=== PATIENT | female | born 1975 | race Caucasian/White ===

== ENCOUNTER → 2017-07-06 09:03 | Outpatient (CLI) | payer OTHER, SELFPAY ==
--- NOTE | 2017-07-06 09:00 | ECHOD_ITS ---
Reason For Study: SOB Procedure This was a 2D Doppler, Color Flow transthoracic echocardiogram. Exam performed in department. Left Ventricle Normal LV size. Left ventricular systolic function is normal. The estimated ejection fraction is 60 %. No evidence for diastolic dysfunction. No regional wall motion abnormalities noted. Right Ventricle Normal RV size. Normal systolic function. Atria Normal left atrium. Normal right atrium. Mobile mass of the right atrium. Measuring 1 x1.4cm. Prominent eustachian valve. Mitral Valve Normal mitral valve. No mitral valve insufficiency. Tricuspid Valve Normal tricuspid valve. Trivial tricuspid valve insufficiency. Aortic Valve Normal aortic valve. Trisinus/trileaflet aortic valve. Pulmonic Valve Normal pulmonic valve. Great Vessels Normal aortic root. Pericardium/Pleural No pericardial effusion. MMode/2D Measurements & Calculations LVIDd: 4.0 cm IVSd: 0.88 cm Ao root diam: 3.4 cm LVIDs: 2.3 cm LVPWd: 0.81 cm LA dimension: 2.7 cm RVDd: 3.0 cm FS: 41.4 % LAV(MOD-bp): 38.1 ml LA A4 area: 14.4 cm2 RA A4 area: 15.0 cm2 LAV(MOD-bp) Indexed: 17.1 ml/m2 LAV(MOD-sp2): 41.6 ml LAV(MOD-sp4): 34.3 ml Doppler Measurements & Calculations MV E max wade: 98.5 cm/sec Lat Peak E' Wade: 13.0 cm/sec Med Peak E' Wade: 9.8 cm/sec MV A max wade: 55.0 cm/sec E/E' lat: 7.6 E/E' med: 10.0 MV E/A: 1.8 Ao V2 max: 130.7 cm/sec LV V1 max: 110.6 cm/sec PA V2 max: 96.6 cm/sec Ao max P.8 mmHg LV V1 max P.9 mmHg Interpretation Summary Normal LV size. Left ventricular systolic function is normal. The estimated ejection fraction is 60 %. No evidence for diastolic dysfunction. Mobile mass of the right atrium Measuring 1 x1.4 cm Recommend KELLY for further clarification Ordering Physician: Pa Polo Referring Physician: Pa Polo Performed By: Maira Henderson RDCS
--- NOTE | 2017-07-06 09:05 | EKG12_ITS ---
Test Reason : SOB Blood Pressure : / mmHG Vent. Rate : 068 BPM Atrial Rate : 068 BPM P-R Int : 138 ms QRS Dur : 116 ms QT Int : 444 ms P-R-T Axes : 035 -14 004 degrees QTc Int : 472 ms Normal sinus rhythm Left ventricular hypertrophy with QRS widening Abnormal ECG Confirmed by HÉCTOR JIN, MAURO ([id number]), editorial manager KIMBERLEE HILARIO ([id number] on 07/07/2017 4:15:02 PM Referred By: Pa Polo Confirmed By:MAURO ANAYA MD
== END ==
PROVIDERS: Family Provider Internal Medicine; PCP Internal Medicine; Visit Provider Internal Medicine
DX: R06.02 Shortness of breath (principal)
CPT/HCPCS: 93005; 93306

== ENCOUNTER → 2017-07-31 10:05 | Outpatient (CLI) | payer OTHER, SELFPAY ==
--- NOTE | 2017-07-31 10:07 | ECHOTEE_ITS ---
Reason For Study: SOB, abn echo finding Medication KELLY probe passed without difficulty. No complications were noted. Cetacaine Topical Brooks given X3 orally. Versed 1 mg given slow IVP. Fentanyl 50 mcg given slow IVP. Performed a rapid injection of agitated mix of 9 cc saline and 1cc air to assess for atrial septal defect. Left Ventricle Normal LV size. Left ventricular systolic function is normal. The estimated ejection fraction is 60 %. No regional wall motion abnormalities noted. Right Ventricle Normal RV size. Normal systolic function. The right ventricular wall motion is normal. Atria Bubble contrast study negative for right to left interatrial shunt. Normal left atrium. No thrombus is detected in the left atrial appendage. Normal right atrium. Prominent eustachian valve thickened and prominent trabeculae. Mitral Valve Normal mitral valve. Mild (1+) eccentric mitral valve insufficiency. Tricuspid Valve Normal tricuspid valve. Trivial tricuspid valve insufficiency. Aortic Valve Normal aortic valve. Trisinus/trileaflet aortic valve. Pulmonic Valve Normal pulmonic valve. Vessels Normal aortic root. The pulmonary artery is normal size. Pericardium No pericardial effusion. Interpretation Summary Prominent eustachian valve thickened and prominent trabeculae Left ventricular systolic function is normal. The estimated ejection fraction is 60 %. No regional wall motion abnormalities noted. Normal LV size. Ordering Physician: Pa Polo Referring Physician: Pa Polo Performed By: Vira Jacobsen RDCS
== END ==
PROVIDERS: Family Provider Internal Medicine; PCP Internal Medicine; Visit Provider Internal Medicine
DX: R06.02 Shortness of breath (principal); R93.1 Abnormal findings on diagnostic imaging of heart and coronary circulation
CPT/HCPCS: 93312; 93320; 93325; J7030; A4216

== ENCOUNTER → 2017-08-11 14:44 | Outpatient (CLI) | payer OTHER, SELFPAY ==
[2017-08-11 15:58] LABS: Absolute Lymphocyte Count 1.78 X10^3/ul (0.83-4.51); Absolute Neutrophil Count 5.5 X10^3/uL (2.0-7.7); Basophil# 0.02 X10^3/uL; Basophil% 0.3 % (0-1); Eosinophil# 0.07 X10^3/uL; Eosinophils% 0.9 % (0-5); Hematocrit 39.5 % (37-47); Lymphocyte # 1.78 X10^3/ul (4.0); Lymphocyte % 22.6 % (19-41); Mean Corp Hgb Conc 32.9 g/gl (32-36); Mean Corpuscular Hgb 29.7 pg (27.0-32.0); Mean Corpuscular Volume 90.2 fL (81-99); Monocyte# 0.52 X10^3/uL; Monocyte% 6.6 % (0-10); Neutrophil # 5.46 X10^3/uL (2.7-7.7); Neutrophil % 69.5 % (47-70); Platelet Count 248 K/mm3 (150-450); RBC Distribution Width CV 12.6 % (11.6-14.6); RBC Distribution Width SD 40.9 fl (35.1-43.9); Red Blood Count 4.38 M/mm3 (4.2-5.4); White Blood Count 7.9 K/mm3 (4.4-11.0)
[2017-08-11 16:08] LABS: POSITIVE COUNT NO; POSITIVE DIFFERENTIAL NO; POSITIVE MORPHOLOGY NO
[2017-08-11 16:34] LABS: Partial Thromboplast Time 26.7 Seconds (24.1-36.2); Prothrombin Time (Protime)PT. 13.4 SECONDS (11.7-14.9)
== END ==
PROVIDERS: Family Provider Internal Medicine; PCP Internal Medicine; Visit Provider Internal Medicine Critical Care Medicine
DX: J45.50 Severe persistent asthma, uncomplicated (principal); R05 Cough
CPT/HCPCS: 36415; 85025; 85610; 85730

== ENCOUNTER → 2017-08-12 18:56 | Outpatient (CLI) | payer OTHER, SELFPAY ==
[2017-08-17 15:13] LABS: HPV APTIMA, High Risk Negative (Negative)
== END ==
PROVIDERS: Family Provider Internal Medicine; PCP Internal Medicine; Visit Provider Nurse Practitioner Women's Health
DX: Z12.4 Encounter for screening for malignant neoplasm of cervix (principal)
CPT/HCPCS: 88175; G0145

== ENCOUNTER → 2017-08-13 06:52 | Outpatient (CLI) | payer OTHER, SELFPAY ==
--- NOTE | 2017-08-13 06:55 | CT_ITS ---
STUDY: CT CHEST WITHOUT CONTRAST REASON FOR EXAM: Female, 42 years old. Chronic productive cough. Shortness of breath. History of prior aspiration of solid food. RADIATION DOSAGE (If Supplied By Facility): CTDIvol = ( 20.05 ) mGy, DLP = ( 765.49 ) mGycm TECHNIQUE: Transaxial imaging was performed without the administration of intravenous contrast material. Multiplanar coronal and sagittal images were reformatted. Individualized dose optimization techniques were used for this CT. COMPARISON: Comparison is made with prior study dated February 21, 2016. FINDINGS: The lungs are normal. There is no demonstrated pleural abnormality. Normal heart and pericardium. There are multiple small lymph nodes within the mediastinum, which are normal in size and morphology most compatible with reactive lymph hyperplasia. Normal hilar regions. Normal unenhanced pulmonary arteries. Normal aorta arch and descending thoracic aorta. There are degenerative changes of the thoracic spine. There is no demonstrated abnormality of the visualized upper abdomen. CT/Chest without Contrast IMPRESSION: Unremarkable unenhanced CT Chest examination. Electronically Signed: Dg Ortiz MD at 9:21 EDT Tel [phone], Service support ,
== END ==
PROVIDERS: Family Provider Internal Medicine; PCP Internal Medicine; Visit Provider Internal Medicine Critical Care Medicine
DX: J45.50 Severe persistent asthma, uncomplicated (principal); R05 Cough
CPT/HCPCS: 71250

== ENCOUNTER 2017-08-14 11:29 | Day surgery (SDC) | payer OTHER, SELFPAY ==
[2017-08-14] VITALS (8 sets, daily range): BP systolic 99–125; BP diastolic 67–97; PULSE 66–81; RESP 16; TEMP 36.4–37.1; O2SAT 95–100; BMI 41.7
--- NOTE | 2017-08-14 | FLU_PTH ---
PATIENT: MCKENNA MORAN LOC: EN U#:[id number] AGE/SX: 42/F ROOM: RE08/14/[address]: Dr. Michael James MD : 1975 BED: DIS: 08/14/2017 SPEC #: [id number] RECD: 08/14/17 14:20 STATUS: HILARY RCAHAEL #: [id number] DONIS: 08/14/17 00:[address]: Michael James DEPT: CYTOLOGY RECD BY: Emory Ruiz ENTERED: 08/14/17 14:21 SP TYPE: Fluid OTHR DR: Dr. Pa Polo MD Tissues: Bronchus of right middle lobe Procedures: Pap Stain (control) Special Stain Group II Surgery Specimen Level IV Cell Block Cytospin Fluid HEADER OPERATION: Bronchoscopy with BAL, endobronchial biopsy PRE-OP DIAGNOSIS: Uncontrolled severe asthma TISSUE SUBMITTED: BAL RML fluid for cytology DIAGNOSIS CYTOLOGY Bronchioalveolar lavage, right middle lobe lung (cytospin and cell block): Negative for malignant cells. AM:abraham 08/17/17 COMMENT Please see corresponding surgical specimen ([id number]). CYTOLOGY STUDY Slides are reviewed. CYTOLOGY GROSS Received is 40 ml of pink cloudy fluid labeled with the patient's name and and designated per the requisition as BAL RML. Submitted for cytology preparation including cell block. / 08/14/17 TC:5 CPT: 67676, 78598
--- NOTE | 2017-08-14 | LUNG_PTH ---
PATIENT: MCKENNA MORAN LOC: EN U#:[id number] AGE/SX: 42/F ROOM: RE08/14/[address]: Dr. Michael James MD : 1975 BED: DIS: 08/14/2017 SPEC #: [id number] RECD: 08/14/17 14:21 STATUS: HILARY RACHAEL #: [id number] DONIS: 08/14/17 00:[address]: Michael James DEPT: SURGICAL PATHOLOGY RECD BY: Emory Ruiz ENTERED: 08/14/17 14:22 SP TYPE: LUNG BX OTHR DR: Dr. Pa Polo MD Tissues: Bronchus of right middle lobe Procedures: Surgery Specimen Level IV HEADER OPERATION: Bronchoscopy with BAL, endobronchial biopsy PRE-OP DIAGNOSIS: Uncontrolled severe asthma TISSUE SUBMITTED: Endobronchial biopsy right bronchus intermedius MICROSCOPIC DIAGNOSIS Right bronchus intermedius, endobronchial biopsy: Benign bronchial epithelium with metaplastic change. Sub-bronchial tissue with minimal chronic inflammation. No evidence of malignancy. AM:abraham 08/17/17 COMMENT Please see corresponding cytology ([id number]). MICROSCOPIC DESCRIPTION Slides are reviewed. GROSS DESCRIPTION Received in fixative is one container labeled with the patient's name and designated endobronchial biopsy right bronchus intermedius. The specimen consists of multiple irregular fragments of roth soft tissue that in aggregate measure 0.4 x 0.1 x <0.1 cm. The specimen is totally submitted in one cassette. / SJ:abraham 08/14/17 TC:3 CPT: 39242
[2017-08-14 13:30] LABS: Cytology, Body Fluid / CSF SEE PATHOLOGY REPORT
--- NOTE | 2017-08-14 13:32 | PCM.OP.BLANK ---
Problem List (1) Severe persistent asthma Status: Chronic Qualifiers: Asthma complication type: uncomplicated Qualified Code(s): J45.50 - Severe persistent asthma, uncomplicated Comment: Status post bronchial thermoplasty in the past (2) Asthma exacerbation, mild Status: Acute Operative Report Date of Procedure: 08/14/17 BRONCHOSCOPY PROCEDURE NOTE Consent: Patient Indication: Severe persistent asthma Brief HPI: Patient is a 42-year-old female, currently following with me in the outpatient office who presented with severe persistent asthma following bronchial thermoplasty. Patient has had multiple workups in the past and there is some concern for occult infection. This led to bronchoscopy. Patient did have a physical exam prior to the procedure and this was unchanged compared to office note. No changes were indicated. A CT scan of the chest was obtained prior to this bronchoscopy and showed no obvious infiltrates. Procedure: After confirmation of informed consent, the procedure was reviewed with the patient once again in detail. All questions were answered and the patient agreed to move forward with the study. Peripheral IV and aerosol therapy was given per protocol. Significant test was used to assess for nasal patency. Right nares was chosen. Attempted to use Q-tips with lidocaine jelly to lubricate the airway. A brief attempt at introducing the scope into the airway was unsuccessful. At that time it was decided to use of oral approach. An oral bite block was placed and patient was given Cetacaine spray in the posterior pharynx. The bronchoscope was easily introduced into the posterior pharynx and vocal cords were visualized. There was good movement with vocalization. No paradoxical movement was noted. Lidocaine was introduced into the airway with associated coughing. After coughing had resolved, the bronchoscope was introduced into the airway. Immediately following introduction, patient developed a stridor-like response with aggressive coughing. Attempted to give lidocaine topically throughout the bronchial tree with limited success in addressing coughing. The bronchoscope was then introduced into the left bronchial tree in all segments and subsegments were examined. Mucosa appeared normal. There was no extrinsic compression, fungating pathology or foreign bodies noted. The bronchoscope was then introduced into the right bronchial tree and inspected in all segments and subsegments. Once again, mucosa appeared normal without extrinsic compression, fungating pathology or foreign bodies noted. The bronchoscope was then introduced into the right middle lobe bronchus in preparation for BAL. 80 cc of saline were instilled and approximately 45 cc were returned. Surfactant response was noted. Random biopsies were then taken of the bronchus intermedius and sent for pathologic review. Bronchoscope was then slowly withdrawn showing no additional areas of scope trauma, but otherwise no new findings were noted. The patient tolerated the procedure well. Patient's mother was updated following the procedure and all questions were answered. Specimens: 45 cc of BAL and endobronchial biopsy Total sedation: Versed 5 mg, fentanyl 75 mcg Complications: None Code Visit 9xxxx: Other Procedure See Report - Bronchoscopy with endobronchial biopsy and BAL
[2017-08-14 14:08] LABS: Body Fluid Mononuclear WBC # 0.082 10^3/uL; Body Fluid Mononuclear WBC % 62.6 %; Body Fluid Polynuclear WBC # 0.049 10^3/uL; Body Fluid Polynuclear WBC % 37.4 %; Body Fluid Total Cells Counted 0.187 10^3/ul (0.000-0.000); White Blood Count/Body Fluid 0.131 10^3/uL
[2017-08-14 15:15] LABS: Lymphocytes 1 %; Macrophages 97 %; Neutrophil (Segs) 2 %
[2017-08-14 15:16] LABS: Appearance/Body Fluid SL CLDY; Body Fluid QC Type(s) BF1; Color/Body Fluid PINK; Source- Body Fluid BRONCHIAL LAVAGE
[2017-08-17 10:18] LABS: Pathologist Comment/Body Fluid Reviewed
== END 2017-08-14 14:50 | disposition home or self-care (01) ==
LOC: EN 11:31 → AC 11:32
PROVIDERS: Family Provider Internal Medicine; PCP Internal Medicine; Visit Provider Internal Medicine Critical Care Medicine
PROC: 0BJ08ZZ Inspection of Tracheobronchial Tree, Via Natural or Artificial Opening Endoscopic (ICD-10-PCS; CPT 31622; principal; 2017-08-14 12:15)
DX: J42 Unspecified chronic bronchitis (principal); J45.50 Severe persistent asthma, uncomplicated; K21.9 Gastro-esophageal reflux disease without esophagitis; Z79.51 Long term (current) use of inhaled steroids; Z87.891 Personal history of nicotine dependence
CPT/HCPCS: 31624; 31625; 87015; 87070; 87116; 87205; 87206; 87252; 87278; 88108; 88305; 88313; 89050; 99152; 99153; J7120

== ENCOUNTER → 2018-01-05 13:52 | Outpatient (CLI) | payer OTHER, SELFPAY | PROVIDERS: Family Provider Internal Medicine; PCP Internal Medicine; Visit Provider Nurse Practitioner Acute Care | DX: J20.9 Acute bronchitis, unspecified (principal) | CPT/HCPCS: 71046 ==

== ENCOUNTER → 2018-01-06 14:37 | Outpatient (CLI) | payer OTHER, SELFPAY | LOC: LAB 14:38 → LABSPEC 14:39 | PROVIDERS: Family Provider Internal Medicine; PCP Internal Medicine; Visit Provider Nurse Practitioner Acute Care | DX: R05 Cough (principal) | CPT/HCPCS: 87070; 87205 ==

== ENCOUNTER → 2019-01-31 | Outpatient (CLI) | payer OTHER, SELFPAY ==
[2019-01-31 13:38] VITALS: BMI 42.5
== END | disposition home or self-care (01) ==
LOC: LABSPEC 02-01 13:53
PROVIDERS: Family Provider Internal Medicine; PCP Internal Medicine; Referring Provider Physician Assistant Surgical; Visit Provider Physician Assistant Surgical
DX: J06.0 Acute laryngopharyngitis (principal)
CPT/HCPCS: 87070

== ENCOUNTER → 2020-02-21 | Outpatient (CLI) | payer OTHER, SELFPAY ==
[2020-02-21 11:05] VITALS: BMI 42.3
[2020-02-21 12:07] LABS: Absolute Lymphocyte Count 1.41 X10^3/uL (0.83-4.51); Basophil# 0.03 X10^3/uL; Basophil% 0.5 % (0-1); Eosinophil# 0.15 X10^3/uL; Eosinophils% 2.5 % (0-5); Hematocrit 43.3 % (37-47); Hemoglobin 13.3 g/dL (12.0-15.0); Lymphocyte # 1.41 X10^3/ul (4.0); Lymphocyte % 23.5 % (19-41); Mean Corp Hgb Conc 30.7 g/dL (32-36); Mean Corpuscular Hgb 28.7 pg (27.0-32.0); Mean Corpuscular Volume 93.3 fL (81-99); Mean Platelet Vol. 10.6 fl (6.2-12.0); Monocyte# 0.41 X10^3/uL; Monocyte% 6.8 % (0-10); NRBC Flagged by Analyzer 0 % (0-5); Neutrophil # 3.98 X10^3/uL (2.7-7.7); Neutrophil % 66.5 % (47-70); Platelet Count 249 K/mm3 (150-450); RBC Distribution Width CV 12.9 % (11.6-14.6); RBC Distribution Width SD 44.6 fl (35.1-43.9); Red Blood Count 4.64 M/mm3 (4.2-5.4)
[2020-02-24 03:06] LABS: Alternaria alternata <0.10 kU/L (Class 0); Aspergillus fumigatus <0.10 kU/L (Class 0); Bahia Grass 0.31 kU/L (Class 0/I); Bermuda Grass 0.11 kU/L (Class 0/I); Bluegrass, Kentucky 0.52 kU/L (Class I); Cat Hair/Dander, Standard 0.29 kU/L (Class 0/I); Cedar, Mountain <0.10 kU/L (Class 0); Cladosporium herbarum <0.10 kU/L (Class 0); Cockroach, American <0.10 kU/L (Class 0); D farinae Mite 1.65 kU/L (Class III); D pteronyssinus 0.65 kU/L (Class II); Dog Epithelia 6.06 kU/L (Class IV); Elm, American White <0.10 kU/L (Class 0); Hazelnut Tree <0.10 kU/L (Class 0); Hickory, White <0.10 kU/L (Class 0); Johnson Grass 0.23 kU/L (Class 0/I); Maple/Box Elder <0.10 kU/L (Class 0); Mucor racemosus <0.10 kU/L (Class 0); Mugwort <0.10 kU/L (Class 0); Mulberry, White <0.10 kU/L (Class 0); Oak, White <0.10 kU/L (Class 0); Penicillium chrysogen <0.10 kU/L (Class 0); Pigweed, Rough <0.10 kU/L (Class 0); Plantain, English <0.10 kU/L (Class 0); Ragweed, Short/Common 0.28 kU/L (Class 0/I); Sheep Sorrel(Dock) <0.10 kU/L (Class 0); Stemphylium herbarum <0.10 kU/L (Class 0); Sweet Gum <0.10 kU/L (Class 0); Sycamore, American <0.10 kU/L (Class 0)
[2020-02-24 09:46] LABS: Nettle <0.10 kU/L (Class 0)
[2020-02-25 03:06] LABS: Aspirgillus flavus Negative (Neg:<1:1); Aspirgillus fumigatus Negative (Neg:<1:1); Aspirgillus niger Negative (Neg:<1:1)
[2020-02-27 10:00] LABS: Immunoglobulin E 40 IU/mL (6-495)
== END | disposition home or self-care (01) ==
LOC: PAVLAB 11:50
PROVIDERS: PCP Internal Medicine; Referring Provider Internal Medicine Critical Care Medicine; Visit Provider Internal Medicine Critical Care Medicine
DX: J45.50 Severe persistent asthma, uncomplicated (principal)
CPT/HCPCS: 36415; 82785; 85025; 86003; 86606

== ENCOUNTER → 2020-02-24 | Outpatient (CLI) | payer OTHER, SELFPAY ==
[2020-02-21 11:05] VITALS: BMI 42.3
== END | disposition home or self-care (01) ==
LOC: MTDU 17:16
PROVIDERS: PCP Internal Medicine; Referring Provider Internal Medicine Critical Care Medicine; Visit Provider Internal Medicine Critical Care Medicine
DX: Z20.828 Contact with and (suspected) exposure to other viral communicable diseases (principal); J98.4 Other disorders of lung
CPT/HCPCS: 87635; C9803; U0003

== ENCOUNTER 2020-04-21 09:46 | Emergency (ER) | payer OTHER, SELFPAY ==
[2020-04-18 09:02] VITALS: BMI 42.3
[2020-04-21 09:46] VITALS: BP 179/121; PULSE 83; RESP 16; TEMP 35.8; O2SAT 100; BMI 42.4
--- NOTE | 2020-04-21 09:57 | RAD_ITS ---
STUDY: X-RAY - PELVIS AND RIGHT HIP REASON FOR EXAM: Female, 45 years old. HIP PAIN POST FALL TECHNIQUE: 3 views of the pelvis and hip. COMPARISON: None. FINDINGS: There is a normal bowel gas pattern. There are Essure devices in the pelvis. Normal bilateral iliac wings, sacroiliac joints and visualized sacrum. Normal bilateral superior and inferior pubic rami. Normal pubic symphysis. Normal bilateral ischial tuberosities. Normal visualized femoral head. There is enthesopathic spurring of the greater trochanter. Normal acetabulum. Normal hip joint. There is no acute fracture. RAD/HIP, UNI W/ Pelvis 2-3 Views IMPRESSION: No acute fracture. Electronically Signed: Perry Peralta MD at 11:01 EST , Service support ,
--- NOTE | 2020-04-21 09:57 | RAD_ITS ---
STUDY: X-RAY - RIGHT KNEE REASON FOR EXAM: Female, 45 years old. KNEE PAIN POST FALL TECHNIQUE: 4 view(s) of the knee. COMPARISON: None. FINDINGS: There is Néstor-Stieda calcification of the medial femoral condyle. Normal visualized proximal tibia and fibula. Normal proximal tibiofibular articulation. There is no demonstrated fracture. There is mild degenerative arthrosis of the medial femorotibial compartment. Normal lateral femorotibial compartment. There is mild degenerative arthrosis of the patellofemoral articulation. There is anterior soft tissue swelling. RAD/Knee 4 or More Views IMPRESSION: No acute fracture. Arthritic and chronic posttraumatic change. Electronically Signed: Perry Peralta MD at 10:59 EST , Service support ,
--- NOTE | 2020-04-21 09:59 | ED.DCSUM_ITS ---
- ER Visit Summary Date of Service: 04/21/20 Chief Complaint: Fall History of Present Illness: The patient is a 45 F who presents after a fall yesterday. Patient states she slipped on ice. Patient states she has pain in her right thigh, right knee, and right hip. Patient states her pain is worse with standing. Patient describes her pain is sharp. Patient states her right leg feels weak due to the pain. Patient denies any head injury or loss of consciousness. Patient denies any paresthesias. Patient denies any other injuries. Physical Examination: Vital signs are stable. Patient is afebrile. Patient is in no acute distress. Musculoskeletal exam reveals tenderness over the right knee. There is no effusion. There is edema and ecchymosis noted over the right knee and right proximal tibia. There is also tenderness over the anterior aspect of the right thigh and lateral aspect of the right hip. There is no bony crepitance or step-off. Range of motion was limited in all motions of the right hip and knee secondary to pain. Sensation was intact to light touch in all digits. Strength is 5/5 bilaterally in the lower extremities. Test Results: X-rays of the right hip were obtained. There are 4 views. On my interpretation, there is no acute fracture. There is no soft tissue swelling. X-rays of the right knee were obtained. There are 4 views. On my interpretation, there is no acute fracture or dislocation. There is some mild degenerative spurring noted on the medial femoral condyle. There is a mild joint effusion. Radiologist also interpreted the x-rays and agrees. Emergency Department Course and Treatment: Patient was given a dose of Tylenol here. Patient was instructed to use ice to the area. Patient was instructed to take Tylenol or ibuprofen as needed for pain. Patient was instructed to follow- up with her primary care physician in 5 to 7 days. Patient understood and was agreeable with the plan. All questions were answered. Disposition: Discharge home Impression: 1. Right knee contusion 2. Right thigh muscle strain This note was generated with [employer] dictation software. It may contain incorrect words, spelling, and punctuation that were not noted in review of the chart prior to signing ED Disposition - Plan for ED Patient: Disposition: Home or Assisted Living Diagnosis: Contusion of right knee, initial encounter, Muscle strain of right thigh Instructions: ED Contusion, Lower Extremity Referrals: Pa Polo MD [Primary Care Provider] - 5-7 Days
[2020-04-21] MEDS: Acetaminophen 500 MG Tablet 1000 MG PO (10:13)
[2020-04-21 11:55] VITALS: BP 132/81; PULSE 71; RESP 18; O2SAT 99
--- NOTE | 2020-04-21 11:55 | ED.RN ---
THIS NURSE REVIEWED D/C INSTRUCTIONS WITH PT. PT VERBALIZED UNDERSTANDING OF INSTRUCTIONS. PT DENIES FURTHER NEEDS OR QUESTIONS AT THIS TIME
== END 2020-04-21 11:56 | disposition home or self-care (01) ==
PROVIDERS: Emergency Provider Emergency Medicine; PCP Internal Medicine
DX: S80.01XA Contusion of right knee, initial encounter (principal); S76.911A Strain of unspecified muscles, fascia and tendons at thigh level, right thigh, initial encounter; E66.9 Obesity, unspecified; J45.909 Unspecified asthma, uncomplicated; Z79.51 Long term (current) use of inhaled steroids; W00.0XXA Fall on same level due to ice and snow, initial encounter; Y93.01 Activity, walking, marching and hiking; Y92.89 Other specified places as the place of occurrence of the external cause; Y99.8 Other external cause status
CPT/HCPCS: 73502; 73564; 99283

== ENCOUNTER 2020-10-23 00:10 | Emergency (ER) | payer OTHER, SELFPAY ==
[2020-10-16 13:52] VITALS: BMI 42.3
[2020-10-23 00:11] VITALS: BP 163/119; PULSE 77; RESP 16; TEMP 36.1; O2SAT 98; BMI 46.1
--- NOTE | 2020-10-23 00:24 | EKG12_ITS ---
Test Reason : DYSRHYTHMIA Blood Pressure : / mmHG Vent. Rate : 071 BPM Atrial Rate : 071 BPM P-R Int : 154 ms QRS Dur : 136 ms QT Int : 422 ms P-R-T Axes : 035 -18 011 degrees QTc Int : 458 ms Normal sinus rhythm Left ventricular hypertrophy with QRS widening Abnormal ECG Confirmed by AILYN JIN, SANTIAGO ([id number]), senior technical editor CHASE ARRIOLA ([id number]) on 10/24/2020 9:31:30 AM Referred By: RONAL Confirmed By:SANTIAGO ROBERTSON MD
--- NOTE | 2020-10-23 00:27 | EDS_ITS ---
HPI History of Present Illness Chief Complaint: Asthma Informant: patient and friend Onset/Context/Timing Onset: Today Quality: Shortness of breath and chest pain Worsened by: Ambulation Relieved by: Rest Associated Symptoms Associated Symptoms: Cough and sputum, history of asthma Narrative Narrative: Patient has a history of asthma, cough variant. She reports shortness of breath and low oxygen, 77%. She does not use supplemental oxygen. She is using her inhalers with no relief. She is not currently on antibiotics or steroids. She does have some chest pain but no history of cardiac disease. She has a remote history of DVT secondary to surgery. She is not currently on blood thinners. No leg pain currently. Prior similar symptoms: Yes Recent Illness/Hospitalization: No [facility] [place] Medical History (Updated 10/23/20 @ 03:[address] Bird Phan MD) Asthma Back pain Enlarged adenoids Hay fever Knee pain Migraines Productive cough Shoulder pain SOB (shortness of breath) Home Medications montelukast 10 mg PO DAILY 05/30/14 [History Last Taken 08/13/17] cranberry extract 200 mg capsule 200 mg PO QDAY 04/30/17 [History Last Taken 08/13/17] epinephrine 0.3 mg/0.3 mL injection, auto-injector 0.3 mg SC ONCE PRN 04/30/17 [History Last Taken 08/13/17] dextromethorphan-guaifenesin 10 mg-200 mg capsule 1 tab-cap PO ONCE PRN 07/11/18 [History Last Taken Unknown] albuterol sulfate 90 mcg/actuation aerosol inhaler 2 puff INHALATION Q4H PRN PRN #18 g 01/17/20 [Rx Last Taken Unknown] mometasone-formoterol HFA 200 mcg-5 mcg/actuation aerosol inhaler 2 puff INHALATION BID #13 g 01/17/20 [Rx Last Taken Unknown] benralizumab 30 mg/mL subcutaneous syringe 30 mg SC Q8W #1 ml 07/02/20 [Rx Last Taken Unknown] ibuprofen [Advil] 400 mg PO DAILY 10/23/20 [History Last Taken Unknown] prednisone 40 mg PO DAILY 4 Days #16 tab 10/23/20 [Rx Last Taken Unknown] Allergy/AdvReac Type Severity Reaction Status Date / Time acetaminophen [From [place]] Allergy hallucinati Verified 10/23/20 00:16 ons hydrocodone [From [place]] Allergy hallucinati Verified 10/23/20 00:16 ons iodine Allergy Anaphylaxis Verified 10/23/20 00:16 shellfish derived Allergy Unknown Verified 10/23/20 00:16 seasonal Allergy / Uncoded 10/23/20 00:16 Family History Mother Hypertension Diabetes Father Hypertension Diabetes Cancer Surgical History bronchial thermoplasty essure H/O foot surgery History of cholecystectomy History of tonsillectomy Hx of LASIK uterine ablation Social History Smoking Status: Never smoker how long ago did patient quit smokin second hand exposure: Yes alcohol intake: never substance use type: does not use caffeine: Yes what type of physical activity do you participate in: none seatbelt use: always do you feel safe at home: Yes additional social history: [employer] Patient works from home ROS ROS ED Constitutional Constitutional ED: Denies chills or fever(s) Eyes Eyes: Denies change in vision ENT ENT ED: Denies ear pain Cardiovascular Cardiovascular: Reports chest pain; Denies palpitations Respiratory/Chest Respiratory/Chest: Reports cough, dyspnea and sputum Gastrointestinal Gastrointestinal: Denies abdominal pain, nausea or vomiting Genitourinary Genitourinary ED: Denies dysuria Musculoskeletal Musculoskeletal: Denies arthralgias or myalgias Integumentary Denies abscess or rash Neurologic Neurologic: Denies headache(s) Psychiatric Psychiatric: Denies depression Endocrine Endocrinology: Denies polyuria Allergic/Immunologic Allergic/Immunologic ED: Denies urticaria EXAM Physical Exam Const Vital Signs: 10/23/20 00:11 10/23/20 00:43 Temperature 96.9 F L Temperature Source Temporal Pulse Rate 77 85 Respiratory Rate 16 16 Respiratory Pattern Normal Blood Pressure 163/119 H Blood Pressure Mean 133 Pulse Ox 98 Oxygen Delivery Method Room Air Positive well nourished and well developed General Appearance ED: well developed HEENT Negative for trauma or tenderness Eyes EOMs intact bilaterally Resp normal respiratory effort and clear to auscultation bilaterally Cardio regular rate and regular rhythm GI normal to inspection, nondistended, normoactive bowel sounds Extremity normal to inspection General Extremety ED: Negative for edema or tenderness General Extremity: Negative for edema Neuro Sensorium / Orientation: alert Psych mental status grossly normal Skin no rashes or lesions noted MDM MDM MDM Narrative Medical decision making narrative: Patient has shortness of breath, coughing, history of asthma and similar symptoms with asthma. She had a low pulse ox at home. EKG was unremarkable. She was placed on the monitor. Laboratory studies and x-ray were unremarkable. She was treated with steroids and DuoNeb. On reevaluation, she was feeling better. She ambulated and was 97% on room air. Patient be discharged on a course of prednisone. Continue inhalers. Follow-up with primary care. Lab Data Attestation: I reviewed the patient's lab results. Labs: Laboratory Results - last 24 hr 10/23/20 10/23/20 00:40 00:40 WBC 6.7 RBC 4.38 Hgb 12.6 Hct 39.2 MCV 89.5 MCH 28.8 MCHC 32.1 RDW Std Deviation 41.5 RDW Coeff of [place] 12.5 Plt Count 231 MPV 10.3 Immature Gran % (Auto) 0.100 Neut % (Auto) 61.3 Lymph % (Auto) 30.1 [place] % (Auto) 8.4 Eos % (Auto) 0.0 Baso % (Auto) 0.1 Absolute Neuts (auto) 4.1 Absolute Lymphs (auto) 2.01 Nucleated RBC % 0 Sodium 142 Potassium 3.5 Chloride 109 H Carbon Dioxide 25.0 Anion Gap 8 BUN 17 Creatinine 0.80 Estim Creat Clear Calc 90.53 Est GFR (MDRD) Af Amer 100 Est GFR (MDRD) Non-Af 83 BUN/Creatinine Ratio 21.4 H Glucose 133 H Calcium 9.0 Troponin I < 0.015 Radiography Chest X-Ray - ED: 1 View, Read by ED Physician and No Acute Disease Diagnostic Testing: Radiology Impression Chest X-Ray 10/23/20 00:46 IMPRESSION: Normal x-ray examination of the chest. Electronically Signed: Emory Garcia MD at 2:44 EDT Tel , Service support , EKG Initial EKG: Attestation: I personally reviewed and interpreted this EKG as follows: (Sinus rhythm at a rate of 71. No sign of acute ischemia or infarction pattern.) Discharge Plan Triage Chief Complaint: Asthma ED Provider: Bird Phan Dx/Rx/DC Orders Clinical Impression: Asthma exacerbation, mild Instructions: ED Asthma, Acute (Adult) Prescriptions: New prednisone 10 mg tablet 40 mg PO DAILY 4 Days Qty: 16 RF: 0 No Action cranberry extract 200 mg capsule 200 mg PO QDAY RF: 0 epinephrine 0.3 mg/0.3 mL auto-injector 0.3 mg SC ONCE PRN (Reason: anaphylaxis) RF: 0 Coricidin HBP Chest Eric-Cough 10-200 mg capsule 1 tab-cap PO ONCE PRN (Reason: Cough) RF: 0 Dulera 200-5 mcg/actuation HFA aerosol inhaler 2 puff INHALATION BID Qty: 13 RF: 6 albuterol sulfate 90 mcg/actuation HFA aerosol inhaler 2 puff INHALATION Q4H PRN PRN (Reason: Bronchospasm) Qty: 18 RF: 3 montelukast 10 MG tablet 10 mg PO DAILY RF: 0 ibuprofen [Advil] 200 mg Tablet 400 mg PO DAILY RF: 0 Fasenra 30 mg/mL syringe 30 mg SC Q8W Qty: 1 RF: 9 Primary Care Provider: Pa Polo Referrals: Pa Polo MD [Primary Care Provider] - Disposition Disposition: Home, self care
[2020-10-23 00:43] VITALS: PULSE 85; RESP 16
[2020-10-23] MEDS: Ipratropium/Albuterol Sulfate 3 ML AMPUL.NEB INHALATION (00:43)
[2020-10-23] MEDS: MethylPREDNISolone 125 MG/2 ML Vial IV (00:43)
--- NOTE | 2020-10-23 00:46 | RAD_ITS ---
STUDY: X-RAY CHEST REASON FOR EXAM: Female, 45 years old. Cough TECHNIQUE: Single AP portable view of the chest. COMPARISON: 01/05/2018 FINDINGS: The lungs are clear and expanded. There is no demonstrated pleural abnormality. Normal size heart. Normal mediastinum and keesha. Normal visualized pulmonary arteries. Normal visualized aortic arch and descending thoracic aorta. Normal visualized thoracic spine. Normal visualized ribs, clavicles, and shoulders. There is no demonstrated abnormality of the visualized soft tissue structures of the upper abdomen. RAD/Chest 1 View (Portable) IMPRESSION: Normal x-ray examination of the chest. Electronically Signed: Emory Garcia MD at 2:44 EDT Tel , Service support ,
[2020-10-23 00:51] LABS: Absolute Lymphocyte Count 2.01 X10^3/uL (0.83-4.51); Absolute Neutrophil Count 4.1 X10^3/uL (2.0-7.7); Basophil# 0.01 X10^3/uL; Basophil% 0.1 % (0-1); Hematocrit 39.2 % (37-47); Hemoglobin 12.6 g/dL (12.0-15.0); Lymphocyte # 2.01 X10^3/ul (0.83-4.51); Lymphocyte % 30.1 % (19-41); Mean Corp Hgb Conc 32.1 g/dL (32-36); Mean Corpuscular Hgb 28.8 pg (27.0-32.0); Mean Corpuscular Volume 89.5 fL (81-99); Mean Platelet Vol. 10.3 fl (6.2-12.0); Monocyte# 0.56 X10^3/uL; Monocyte% 8.4 % (0-10); NRBC Flagged by Analyzer 0 % (0-5); Neutrophil # 4.09 X10^3/uL (2.7-7.7); Neutrophil % 61.3 % (47-70); Platelet Count 231 K/mm3 (150-450); RBC Distribution Width CV 12.5 % (11.6-14.6); RBC Distribution Width SD 41.5 fl (35.1-43.9); Red Blood Count 4.38 M/mm3 (4.2-5.4); White Blood Count 6.7 K/mm3 (4.4-11.0)
[2020-10-23 01:09] LABS: Anion Gap 8 (5-15); BUN 17 mg/dL (7-18); BUN/Creat Ratio 21.4 RATIO (10-20); Chloride 109 mmol/L (98-107); EST Glomerular Filtration Rate 83 mL/min (>60); Est Glom Filt Rate - Afr Amer 100 mL/min (>60); Estimated Creatinine Clearance 90.53 ml/min; Glucose 133 mg/dL (74-106); Potassium 3.5 mmol/L (3.5-5.1); Sodium Level 142 mmol/L (136-145)
[2020-10-23 02:56] VITALS: O2SAT 97
[2020-10-23 03:18] VITALS: BP 144/87; PULSE 84; RESP 18; O2SAT 97
== END 2020-10-23 03:19 | disposition home or self-care (01) ==
PROVIDERS: Emergency Provider Emergency Medicine; PCP Internal Medicine
DX: J45.901 Unspecified asthma with (acute) exacerbation (principal); Z79.51 Long term (current) use of inhaled steroids; Z86.718 Personal history of other venous thrombosis and embolism; Z87.891 Personal history of nicotine dependence; Z79.899 Other long term (current) drug therapy
CPT/HCPCS: 71045; 80048; 84484; 85025; 87426; 93005; 94640; 96374; 99284; A4216

== ENCOUNTER 2021-05-06 12:31 | Outpatient (CLI) | payer OTHER, SELFPAY ==
[2021-05-06 12:40] VITALS: BP 179/109; PULSE 81; RESP 18; TEMP 36.9; O2SAT 100; BMI 43.8
[2021-05-06] MEDS: 0.9% Saline Lock 10 ML Syringe IV (13:12)
[2021-05-06 13:34] VITALS: BP 150/93; PULSE 79; RESP 16; TEMP 36.8; O2SAT 98
[2021-05-06 14:22] VITALS: BP 144/91; PULSE 58; RESP 16; TEMP 36.9; O2SAT 94
== END 2021-05-06 23:59 | disposition home or self-care (01) ==
LOC: MS3OUT 12:31 → MS3 12:32
PROVIDERS: PCP Internal Medicine; Visit Provider Nurse Practitioner Adult Health
DX: Z23 Encounter for immunization (principal); U07.1 COVID-19; J45.909 Unspecified asthma, uncomplicated
CPT/HCPCS: J7050; M0243; A4216; Q0244

== ENCOUNTER 2021-06-05 16:06 | Outpatient (CLI) | payer OTHER, SELFPAY ==
[2021-06-05 17:14] LABS: Absolute Lymphocyte Count 1.64 X10^3/uL (0.83-4.51); Absolute Neutrophil Count 4.1 X10^3/uL (2.0-7.7); Basophil# 0.01 X10^3/uL; Basophil% 0.2 % (0-1); Hemoglobin 12.2 g/dL (12.0-15.0); Lymphocyte # 1.64 X10^3/ul (0.83-4.51); Lymphocyte % 26.4 % (19-41); Mean Corp Hgb Conc 32.1 g/dL (32-36); Mean Corpuscular Hgb 28.5 pg (27.0-32.0); Mean Corpuscular Volume 88.8 fL (81-99); Mean Platelet Vol. 10.9 fl (6.2-12.0); Monocyte# 0.49 X10^3/uL; Monocyte% 7.9 % (0-10); NRBC Flagged by Analyzer 0 % (0-5); Neutrophil # 4.06 X10^3/uL (2.7-7.7); Neutrophil % 65.2 % (47-70); Platelet Count 262 K/mm3 (150-450); RBC Distribution Width CV 13.7 % (11.6-14.6); RBC Distribution Width SD 44.4 fl (35.1-43.9); Red Blood Count 4.28 M/mm3 (4.2-5.4); White Blood Count 6.2 K/mm3 (4.4-11.0)
[2021-06-05 17:37] LABS: ALB/GLOB Ratio 0.9 RATIO (0.9-2.4); AST(SGOT) 18 U/L (15-37); Alanine Aminotransfer ALT/SGPT 29 U/L (13-56); Albumin, Serum 3.2 g/dL (3.2-5.0); Alkaline Phosphatase 91 U/L (45-117); Anion Gap 5 (5-15); BUN 15 mg/dL (7-18); BUN/Creat Ratio 19.5 RATIO (10-20); Chloride 108 mmol/L (98-107); Cholesterol 213 mg/dL (200); Creatinine, Serum 0.77 mg/dL (0.55-1.02); EST Glomerular Filtration Rate 86 mL/min (>60); Est Glom Filt Rate - Afr Amer 104 mL/min (>60); Globulin 3.6 g/dL (2.2-4.2); Glucose 103 mg/dL (74-106); High Density Lipoprotein 58 mg/dL; Potassium 3.7 mmol/L (3.5-5.1); Protein, Total 6.8 g/dL (6.4-8.2); Sodium Level 142 mmol/L (136-145); Triglycerides 246 mg/dL; Very Low Density Lipoprotein 49 mg/dL (5-40)
== END 2021-06-05 23:59 | disposition short-term general hospital (02) ==
LOC: BIMLAB 16:07
PROVIDERS: PCP Internal Medicine; Referring Provider Internal Medicine; Visit Provider Internal Medicine
DX: Z00.00 Encounter for general adult medical examination without abnormal findings (principal)
CPT/HCPCS: 36415; 80053; 80061; 85025

== ENCOUNTER 2021-07-24 13:20 | Outpatient (CLI) | payer OTHER, SELFPAY ==
--- NOTE | 2021-07-24 13:21 | BI_ITS ---
MAMMOGRAPHY - BILATERAL SCREENING REASON FOR EXAM: Female, 46 years old. Routine annual screening examination. PERTINENT HISTORY: Non-contributory. TECHNIQUE: Digital bilateral breast jazmín (3D mammographic acquisition) in the CC and MLO projections. 2-D mediolateral oblique (MLO) and craniocaudad (CC) views of both breasts were obtained. CAD: Full Field Digital Mammography with Computer Added Detection was performed. COMPARISON: None. Baseline examination. FINDINGS: Breast Composition: There are scattered areas of fibroglandular density. There are no dominant masses or suspicious calcifications. No other significant abnormalities are identified. BI/SCRN MAMM (CAD)W/JAZMÍN BILAT IMPRESSION: Negative screening mammogram. Yearly followup mammogram recommended. (A) ASSESSMENT CATEGORY: BIRADS Category 1: Negative. A letter regarding these results will be sent to the patient by the facility within 30 days. Approximately 10% of breast cancers are not detected by mammography. A normal mammogram should not delay biopsy of a clinically suspicious abnormality. [id number] Electronically Signed: Dg Ortiz MD at 14:12 EDT ,
== END 2021-07-24 23:59 | disposition home or self-care (01) ==
LOC: OPBI 13:21
PROVIDERS: PCP Internal Medicine; Visit Provider Internal Medicine
DX: Z12.31 Encounter for screening mammogram for malignant neoplasm of breast (principal)
CPT/HCPCS: 77063; 77067

== ENCOUNTER → 2021-11-19 | Outpatient (CLI) | payer OTHER, SELFPAY | END | disposition home or self-care (01) | LOC: LABSPEC 15:58 | PROVIDERS: PCP Internal Medicine; Visit Provider Nurse Practitioner Women's Health | DX: N76.0 Acute vaginitis (principal) | CPT/HCPCS: 87070; 87077; 87205 ==

== ENCOUNTER → 2022-01-23 | Outpatient (CLI) | payer OTHER, SELFPAY ==
[2022-01-23 13:08] VITALS: BP 162/92; PULSE 89; RESP 16; TEMP 36; O2SAT 99; BMI 43.8
[2022-01-23] MEDS: tezepelumab-ekko 210 MG/1.91 ML SYRINGE SC (13:44)
== END | disposition home or self-care (01) ==
LOC: MEDOUTP 13:01
PROVIDERS: PCP Internal Medicine; Referring Provider Internal Medicine Critical Care Medicine; Visit Provider Internal Medicine Critical Care Medicine
DX: J45.50 Severe persistent asthma, uncomplicated (principal)
CPT/HCPCS: 96372; J2356

== ENCOUNTER → 2022-02-20 | Outpatient (CLI) | payer OTHER, SELFPAY ==
[2022-02-20 14:45] VITALS: BP 131/85; PULSE 92; RESP 16; TEMP 36.6; O2SAT 97
[2022-02-20] MEDS: tezepelumab-ekko 210 MG/1.91 ML SYRINGE SC (14:53)
== END | disposition home or self-care (01) ==
LOC: MEDOUTP 14:41
PROVIDERS: PCP Internal Medicine; Referring Provider Internal Medicine Critical Care Medicine; Visit Provider Internal Medicine Critical Care Medicine
DX: J45.50 Severe persistent asthma, uncomplicated (principal)
CPT/HCPCS: 96372; J2356

== ENCOUNTER → 2022-02-26 | Outpatient (CLI) | payer OTHER, SELFPAY ==
[2022-02-26 12:35] LABS: Hemoglobin A1c 5.9 % (3.8-5.6)
[2022-02-26 12:55] LABS: Anion Gap 4 (5-15); BUN 14 mg/dL (7-18); BUN/Creat Ratio 19.4 RATIO (10-20); Chloride 109 mmol/L (98-107); Creatinine, Serum 0.72 mg/dL (0.55-1.02); EST Glomerular Filtration Rate 92 mL/min (>60); Est Glom Filt Rate - Afr Amer 112 mL/min (>60); Glucose 107 mg/dL (74-106); Potassium 4.1 mmol/L (3.5-5.1); Sodium Level 140 mmol/L (136-145)
== END | disposition home or self-care (01) ==
LOC: BIMLAB 11:26
PROVIDERS: PCP Internal Medicine; Referring Provider Internal Medicine; Visit Provider Internal Medicine
DX: I10 Essential (primary) hypertension (principal); E66.01 Morbid (severe) obesity due to excess calories
CPT/HCPCS: 36415; 80048; 83036

== ENCOUNTER → 2022-05-15 | Outpatient (CLI) | payer OTHER, SELFPAY ==
[2022-05-15 15:54] LABS: Bacteria 0 SEEN /hpf (None Seen); Mucous, Urine 0 SEEN /hpf (<or=2+); Red Blood Cells-Urine 0 SEEN /hpf (0-5)
[2022-05-15 16:49] LABS: Color, Urine Yellow (Yellow); Glucose, Dipstick Normal (Normal); Ketone-Dipstick Negative (Negative); Leukocyte Esterase-Dipstick 25 /ul (Negative); Nitrite-Dipstick Negative (Negative); Occult Blood-Urine Negative /ul (Negative); Protein-Dipstick Negative (Negative); Specific Gravity, Urine 1.025 (1.002-1.030); Urine Bilirubin Dipstick Negative (Negative); Urine Clarity Clear (Clear); Urine Urobilinogen Normal (Normal)
[2022-05-15 16:57] LABS: Squamous Epithelial Cells - UA 0-5 SEEN /hpf (5-10); White Blood Cells 0-5 SEEN /hpf (0-5)
[2022-05-15 16:58] LABS: Hemoglobin A1c 5.9 % (3.8-5.6)
[2022-05-15 17:35] LABS: ALB/GLOB Ratio 1.1 RATIO (0.9-2.4); AST(SGOT) 23 U/L (15-37); Alanine Aminotransfer ALT/SGPT 42 U/L (13-56); Albumin, Serum 3.9 g/dL (3.2-5.0); Alkaline Phosphatase 106 U/L (45-117); Anion Gap 6 (5-15); BUN 18 mg/dL (7-18); BUN/Creat Ratio 21.4 RATIO (10-20); Chloride 108 mmol/L (98-107); Creatinine, Serum 0.84 mg/dL (0.55-1.02); EST Glomerular Filtration Rate 78 mL/min (>60); Est Glom Filt Rate - Afr Amer 94 mL/min (>60); Globulin 3.5 g/dL (2.2-4.2); Glucose 127 mg/dL (74-106); Potassium 3.5 mmol/L (3.5-5.1); Protein, Total 7.4 g/dL (6.4-8.2); Sodium Level 141 mmol/L (136-145)
== END | disposition home or self-care (01) ==
LOC: BIMLAB 15:53
PROVIDERS: PCP Internal Medicine; Referring Provider Internal Medicine; Visit Provider Internal Medicine
DX: I10 Essential (primary) hypertension (principal); R73.03 Prediabetes
CPT/HCPCS: 36415; 80053; 81001; 83036

== ENCOUNTER → 2022-06-18 | Outpatient (CLI) | payer OTHER, SELFPAY ==
[2022-06-18 16:49] LABS: Absolute Lymphocyte Count 1.67 X10^3/uL (0.83-4.51); Absolute Neutrophil Count 5.2 X10^3/uL (2.0-7.7); Basophil# 0.02 X10^3/uL; Basophil% 0.3 % (0-1); Eosinophil# 0.09 X10^3/uL; Eosinophils% 1.2 % (0-5); Hematocrit 41.6 % (37-47); Lymphocyte # 1.67 X10^3/ul (0.83-4.51); Lymphocyte % 22.2 % (19-41); Mean Corp Hgb Conc 31.3 g/dL (32-36); Mean Corpuscular Hgb 28.2 pg (27.0-32.0); Mean Corpuscular Volume 90.2 fL (81-99); Monocyte% 6.6 % (0-10); NRBC Flagged by Analyzer 0 % (0-5); Neutrophil # 5.22 X10^3/uL (2.7-7.7); Neutrophil % 69.3 % (47-70); Platelet Count 256 K/mm3 (150-450); RBC Distribution Width CV 13.7 % (11.6-14.6); RBC Distribution Width SD 45.3 fl (35.1-43.9); Red Blood Count 4.61 M/mm3 (4.2-5.4); White Blood Count 7.5 K/mm3 (4.4-11.0)
[2022-06-18 17:25] LABS: Anion Gap 7 (5-15); BUN 17 mg/dL (7-18); BUN/Creat Ratio 21.9 RATIO (10-20); Calcium,Total 9.7 mg/dL (8.5-10.1); Chloride 109 mmol/L (98-107); Cholesterol 240 mg/dL (200); Creatinine, Serum 0.78 mg/dL (0.55-1.02); EST Glomerular Filtration Rate 85 mL/min (>60); Est Glom Filt Rate - Afr Amer 103 mL/min (>60); Glucose 90 mg/dL (74-106); High Density Lipoprotein 54 mg/dL; Potassium 4.1 mmol/L (3.5-5.1); Sodium Level 142 mmol/L (136-145); Triglycerides 206 mg/dL; Very Low Density Lipoprotein 41 mg/dL (5-40)
== END | disposition home or self-care (01) ==
LOC: BIMLAB 15:33
PROVIDERS: PCP Internal Medicine; Referring Provider Internal Medicine; Visit Provider Internal Medicine
DX: I10 Essential (primary) hypertension (principal)
CPT/HCPCS: 36415; 80048; 80061; 85025

== ENCOUNTER 2022-09-08 07:17 | Emergency (ER) | payer OTHER, SELFPAY ==
[2022-09-08 07:20] VITALS: BP 144/116; PULSE 98; RESP 18; TEMP 36; O2SAT 100
--- NOTE | 2022-09-08 07:33 | ED.VIS.FALL ---
HPI HPI - Fall History of Present Illness Chief Complaint: Fall Narrative Narrative: Patient presents with a right shoulder pain after a fall. She was about to fall and grabbed onto something that was high up and now she has right shoulder pain. She did not actually fall on her shoulder she fell on her left knee but has minimal left knee pain. No head injury or any other injury. PFSH PFSH Medical History Acute maxillary sinusitis, unspecified Asthma Back pain Bilateral shoulder pain Borderline type 2 diabetes mellitus COVID COVID-19 Hay fever Hypertension Knee pain Migraines Morbid obesity Nocturia Shoulder pain SOB (shortness of breath) Urinary frequency Varicose vein of leg Home Medications cranberry extract 200 mg capsule 200 mg PO QDAY 04/30/17 [History Last Taken 08/13/17] ibuprofen 200 mg tablet (Advil) 400 mg PO DAILY PRN Pain 10/23/20 [History Last Taken Unknown] levalbuterol tartrate 45 mcg/actuation aerosol inhaler (Xopenex HFA) 2 inh inhalation Q4H PRN shortness of breath or wheezing #15 grams 05/03/21 [Rx Last Taken Unknown] levalbuterol HCl 1.25 mg/3 mL solution for nebulization (Xopenex) 1.25 mg (3 mL) inhalation Q2H #90 mL 05/06/21 [Rx Last Taken Unknown] epinephrine 0.3 mg/0.3 mL injection, auto-injector 0.3 mg (0.3 mL) subcut ONCE PRN anaphylaxis #2 ea 10/31/21 [Rx Last Taken Unknown] guaifenesin 600 mg tablet, extended release 12 hr 600 mg PO BID PRN Cough 12/11/21 [History Last Taken Unknown] tezepelumab-ekko 210 mg/1.91 mL (110 mg/mL) subcutaneous syringe (Tezspire) 210 mg (1.91 mL) subcut Q4W #1.91 mL 02/13/22 [Rx Last Taken Unknown] montelukast 10 mg tablet 10 mg PO DAILY #90 tabs 03/24/22 [Rx Last Taken Unknown] mometasone-formoterol HFA 200 mcg-5 mcg/actuation aerosol inhaler (Dulera) 2 puff inhalation BID #13 grams 05/29/22 [Rx Last Taken Unknown] losartan 100 mg tablet 100 mg PO DAILY #90 tabs 07/21/22 [Rx Last Taken Unknown] spacer #1 ea 07/23/22 [Rx Last Taken Unknown] naproxen 500 mg tablet (Naprosyn) 500 mg PO BID PRN pain #20 tabs 09/08/22 [Rx Last Taken Unknown] Allergy/AdvReac Type Severity Reaction Status Date / Time hydrocodone [From [place]] Allergy hallucinati Verified 09/08/22 07:18 ons iodine Allergy Anaphylaxis Verified 09/08/22 07:18 shellfish derived Allergy Unknown Verified 09/08/22 07:18 Family History Mother Hypertension Diabetes Father Hypertension Diabetes Cancer Malignant hyperthermia due to anesthesia, Onset Age: 72 Surgical History bronchial thermoplasty essure H/O foot surgery History of cholecystectomy History of tonsillectomy Hx of LASIK uterine ablation Social History current occupational status: employed current occupation: [employer] Smoking Status: Never smoker second hand exposure: Yes alcohol intake: never substance use type: does not use caffeine: Yes what type of physical activity do you participate in: none seatbelt use: always do you feel safe at home: Yes additional social history: Seperated Patient works from home ROS ROS ED ROS Narrative Social: Noncontributory Medications: Reviewed Past medical history: Reviewed Review of systems General: Patient has no head injury or loss of consciousness HEENT: No facial injury Neck: No neck pain Cardiovascular: Patient denies any chest pain or palpitations Chest wall: No chest wall contusions GI: No abdominal injury Skin: No lacerations or abrasions Neurological: Patient has no memory loss, confusion, or any focal weakness Back: No back pain, no problems with ambulation Musculoskeletal: Right shoulder pain, left knee small abrasion All other systems are reviewed and normal EXAM Physical Exam Narrative Exam Narrative: Physical exam Vitals reviewed General: Does not appear in significant distress, no obvious injuries HEENT: No facial injury Head: No head injury Eyes: Extraocular movements intact Neck: No C-spine tenderness with full range of motion Heart: Regular rate normal pulses Chest wall: No chest wall pain Lungs clear lungs bilaterally with normal inspiration and expiration without tachypnea GI: Abdomen is soft and nontender there is no mass no guarding no abdominal wall contusion : Stable pelvis Musculoskeletal: Right shoulder reveals tenderness over the deltoid region and the rotator cuff muscles especially the supraspinatus region. She has quite a bit of pain with AB duct the morning at 90 degrees. She has no AC joint tenderness no obvious bony tenderness. No posterior tenderness or scapular pain. Left knee has a small abrasion full range of motion no effusion no significant patellar tenderness no laxity. She is able to bear weight quite well Skin: No abrasions or laceration Neurological: Patient is alert and oriented with no focal deficits Const Vital Signs: 09/08/22 07:20 Temperature 96.8 F L Temperature Source Oral Pulse Rate 98 Respiratory Rate 18 Blood Pressure 144/116 H Blood Pressure Mean 125 Pulse Ox 100 Oxygen Delivery Method Room Air MDM MDM MDM Narrative Medical decision making narrative: Patient has an unremarkable right shoulder x-ray as read by me. Radiologist did see some sort of bone density superior to the glenoid which I now see however I do not believe this has any relevance in today's injury. This was a Workmen's Comp. and patient will receive the proper restrictions and follow-up. I thought about an x-ray of the left knee however patient has full range of motion with minimal tenderness and she is able to bear weight I do not believe this is needed. She will be discharged in stable condition to follow-up with employee health. Naprosyn was prescribed. Radiography Diagnostic Testing: Clinical Impression(s) from Imaging Studies Shoulder X-Ray 09/08/22 07:50 IMPRESSION: Degenerative changes of the acromioclavicular joint. Indeterminate bony density projecting superior to the glenoid, may be secondary to an ossicle or a fracture of uncertain chronicity. Left perihilar nonspecific opacity, may be secondary to a confluence of shadows however cannot exclude asymmetric edema and/or an infectious process. Electronically Signed: Nat Arthur MD at 8:21 EDT , Right shoulder x-rays interpreted by me does not show any fracture Discharge Plan Triage Chief Complaint: Fall ED Provider: Cornici,Everett Dx/Rx/DC Orders Clinical Impression: Fall, Rotator cuff strain, Contusion of knee, left Instructions: Rotator Cuff Tear, ED Soft Tissue Contusion Prescriptions: New naproxen [Naprosyn] 500 mg tablet 500 mg PO BID PRN (Reason: pain) Qty: 20 0RF No Action cranberry extract 200 mg capsule 200 mg PO QDAY Label Comments: 3 tabs guaifenesin 600 mg tablet extended release 12hr 600 mg PO BID PRN (Reason: Cough) (DME) spacer See Rx Instructions .ROUTE .MEDSUPPLY Qty: 1 0RF Rx Instructions: As directed ibuprofen [Advil] 200 mg Tablet 400 mg PO DAILY PRN (Reason: Pain) levalbuterol tartrate [Xopenex HFA] 45 mcg/actuation HFA aerosol inhaler 2 inh inhalation Q4H PRN (Reason: shortness of breath or wheezing) Qty: 15 3RF levalbuterol HCl [Xopenex] 1.25 mg/3 mL solution for nebulization 1.25 mg inhalation Q2H Qty: 90 3RF Rx Instructions: for up to 3 doses epinephrine 0.3 mg/0.3 mL auto-injector 0.3 mg SC ONCE PRN (Reason: anaphylaxis) Qty: 2 1RF Tezspire 210 mg/1.91 mL (110 mg/mL) syringe 210 mg subcut Q4W Qty: 1.91 11RF montelukast 10 mg tablet 10 mg PO DAILY Qty: 90 3RF Dulera 200-5 mcg/actuation HFA aerosol inhaler 2 puff INHALATION BID Qty: 13 11RF losartan 100 mg tablet 100 mg PO DAILY Qty: 90 2RF Primary Care Provider: Pa Polo Referrals: Pa Polo MD [Primary Care Provider] - [facility] - 3-5 Days Disposition Disposition: Home, Self Care
--- NOTE | 2022-09-08 07:50 | RAD_ITS ---
INDICATION: trauma EXAMINATION/TECHNIQUE: X-RAY - RIGHT XR Shoulder Min 2 Views 4 VIEWS COMPARISON: Shoulder radiograph dated October 23, 2020 FINDINGS: SOFT TISSUES: No soft tissue swelling or gas. No radiopaque foreign body. BONES/JOINTS: There is a round bony density projecting superior to the glenoid. Normal alignment. There are degenerative changes of the acromioclavicular joint. No sclerotic or destructive changes observed. There is a patchy opacity within the visualized left perihilar region. RAD/Shoulder min 2 Views IMPRESSION: Degenerative changes of the acromioclavicular joint. Indeterminate bony density projecting superior to the glenoid, may be secondary to an ossicle or a fracture of uncertain chronicity. Left perihilar nonspecific opacity, may be secondary to a confluence of shadows however cannot exclude asymmetric edema and/or an infectious process. Electronically Signed: Nat Arthur MD at 8:21 EDT ,
[2022-09-08 08:37] VITALS: BMI 41.0
== END 2022-09-08 08:37 | disposition home or self-care (01) ==
LOC: ED 08:08
PROVIDERS: Emergency Provider Emergency Medicine; PCP Internal Medicine; Visit Provider Emergency Medicine
DX: S80.02XA Contusion of left knee, initial encounter (principal); I10 Essential (primary) hypertension; S46.011A Strain of muscle(s) and tendon(s) of the rotator cuff of right shoulder, initial encounter; W19.XXXA Unspecified fall, initial encounter
CPT/HCPCS: 73030; 99283

== ENCOUNTER → 2022-12-24 | Outpatient (CLI) | payer OTHER, SELFPAY ==
[2022-12-24 16:42] LABS: Anion Gap 7 (5-15); BUN 15 mg/dL (7-18); BUN/Creat Ratio 16.3 RATIO (10-20); Calcium,Total 9.5 mg/dL (8.5-10.1); Chloride 110 mmol/L (98-107); Creatinine, Serum 0.92 mg/dL (0.55-1.02); EST Glomerular Filtration Rate 69 mL/min (>60); Est Glom Filt Rate - Afr Amer 84 mL/min (>60); Glucose 134 mg/dL (74-106); Potassium 3.7 mmol/L (3.5-5.1); Sodium Level 143 mmol/L (136-145)
[2022-12-27 14:12] LABS: Chlamydia By Nucleic Acid AMP Negative (Negative); Gonococcus By Nucleic Acid AMP Negative (Negative)
[2022-12-29 12:08] LABS: HPV APTIMA, High Risk Negative (Negative)
[2022-12-29 16:50] LABS: HPV Reflexed? YES, CHARGE PATIENT
== END | disposition home or self-care (01) ==
LOC: LABSPEC 15:14
PROVIDERS: Internal Medicine; Referring Provider Registered Nurse; Visit Provider Registered Nurse
DX: Z12.4 Encounter for screening for malignant neoplasm of cervix (principal); R73.03 Prediabetes
CPT/HCPCS: 36415; 80048; 87491; 87591; 87624; 88175; G0145

== ENCOUNTER → 2023-02-04 | Outpatient (CLI) | payer OTHER, SELFPAY ==
[2023-02-04 15:53] LABS: Absolute Lymphocyte Count 1.63 X10^3/uL (0.83-4.51); Absolute Neutrophil Count 5.2 X10^3/uL (2.0-7.7); Basophil# 0.03 X10^3/uL; Basophil% 0.4 % (0-1); Eosinophil# 0.07 X10^3/uL; Eosinophils% 0.9 % (0-5); Hematocrit 41.9 % (37-47); Hemoglobin 13.1 g/dL (12.0-15.0); Lymphocyte # 1.63 X10^3/ul (0.83-4.51); Lymphocyte % 21.9 % (19-41); Mean Corp Hgb Conc 31.3 g/dL (32-36); Mean Corpuscular Hgb 28.7 pg (27.0-32.0); Mean Corpuscular Volume 91.7 fL (81-99); Mean Platelet Vol. 10.5 fl (6.2-12.0); Monocyte% 6.7 % (0-10); NRBC Flagged by Analyzer 0 % (0-5); Neutrophil % 69.8 % (47-70); Platelet Count 292 K/mm3 (150-450); RBC Distribution Width CV 14.1 % (11.6-14.6); RBC Distribution Width SD 47.5 fl (35.1-43.9); Red Blood Count 4.57 M/mm3 (4.2-5.4); White Blood Count 7.5 K/mm3 (4.4-11.0)
[2023-02-04 16:21] LABS: Anion Gap 4 (5-15); BUN 12 mg/dL (7-18); BUN/Creat Ratio 14.4 RATIO (10-20); Calcium,Total 9.6 mg/dL (8.5-10.1); Chloride 109 mmol/L (98-107); Creatinine, Serum 0.83 mg/dL (0.55-1.02); EST Glomerular Filtration Rate 78 mL/min (>60); Est Glom Filt Rate - Afr Amer 94 mL/min (>60); Glucose 127 mg/dL (74-106); Potassium 3.7 mmol/L (3.5-5.1); Sodium Level 142 mmol/L (136-145)
== END | disposition home or self-care (01) ==
LOC: LAB 15:05
PROVIDERS: PCP Internal Medicine; Referring Provider Student in an Organized Health Care Education/Training Program; Visit Provider Student in an Organized Health Care Education/Training Program
DX: Z01.818 Encounter for other preprocedural examination (principal)
CPT/HCPCS: 36415; 80048; 85025

== ENCOUNTER → 2023-06-05 | Outpatient (CLI) | payer OTHER, SELFPAY ==
[2023-06-05 12:58] LABS: Anion Gap 0 (5-15); BUN 14 mg/dL (7-18); BUN/Creat Ratio 18.4 RATIO (10-20); Calcium,Total 9.5 mg/dL (8.5-10.1); Chloride 108 mmol/L (98-107); Creatinine, Serum 0.76 mg/dL (0.55-1.02); EST Glomerular Filtration Rate 87 mL/min (>60); Est Glom Filt Rate - Afr Amer 105 mL/min (>60); Glucose 93 mg/dL (74-106); Hemoglobin A1c 5.8 % (3.8-5.6); Potassium 4.4 mmol/L (3.5-5.1); Sodium Level 139 mmol/L (136-145)
--- OUTSIDE RECORDS SUMMARY | 2023-06-05 13:25 | XMS RPT_ITS | CCD ---
Author Name Unknown Address [address] [place] [address] Organization [facility] Care Team Providers Care Purchasing Analyst Name Role Phone Kassidy Gold LPN Unavailable [phone] Kassidy Gold LPN Unavailable [phone] Allergies Allergy Classification Reported Allergen(s) Allergy Type Date of Onset Reaction(s) Facility (2 sources) iodine drug allergy 01-28-2016 anaphylaxis [facility] Work Phone: (2 sources) Shellfish; Translations: [SHELLFISH] food allergy 01-28-2016 anaphylaxis [facility] Work Phone: (2 sources) SEASONAL; Translations: [SEASONAL] allergy to substance 01-28-2016 [facility] Work Phone: Medications Completed/Discontinued Medications Medication Drug Class(es) Dates Sig (Normalized) Sig (Original) ACAPELLA (2 sources) Start: 01-28-2016 ACAPELLA Use Twice daily Dx: Bronchiectesis ACAPELLA Michael James ALBUTEROL SULFATE (2 sources) beta2-Adrenergic Agonist Start: 01-28-2016 take 2 puff(s) by inhalation every four hours as needed PROAIR HFA 108 (90 Base) MCG/ACT AERS INH 2 puffs q4h as needed ALBUTEROL SULFATE [id number] Merissa Michael CNP amoxicillin 875 mg / clavulanate 125 mg oral tablet (4 sources) Penicillin-class Antibacterial Start: 08-13-2016 End: 08-27-2016 AMOXICILLIN-POT CLAVULANATE 875-125 MG TABS Take 1 tab every 12 hours AMOXICILLIN-POT CLAVULANATE [id number] Miah CASEY Problems Active Problems Problem Classification Problem Date Documented Da te Episodic/Chronic Asthma (8 sources) Asthma; Translations: [Allergic asthma] Onset: 01-28-2016 12-25-2016 Chronic Past or Other Problems Problem Classification Problem Date Documented Da te Episodic/Chronic Chronic obstructive pulmonary disease and bronchiectasis (2 sources) Bronchitis; Translations: [Bronchitis, not specified as acute or chronic] Onset: 12-25-2016 12-25-2016 Episodic Mycoses (2 sources) Candidiasis of mouth; Translations: [Candidal stomatitis] Onset: 01-28-2016 01-28-2016 Episodic Other lower respiratory disease (2 sources) Productive cough ; Translations: [Cough] Onset: 02-25-2016 02-25-2016 Episodic Other upper respiratory infections (4 sources) Acute sinusitis; Translations: [Acute maxillary sinusitis] Onset: 07-03-2016 08-13-2016 Episodic Results Test Name Value Interpretation Reference Range Facil ity Vital Signs Date Time Vital Sign Value Performing Clinician Faci lity 12-25-2016 11:02-0400 BMI (Body Mass Index) 39.15 kg/m2 Kassidy Hilljosé [facility]ENSEN [facility] Work Phone: 12-25-2016 11:02-0400 Body Temperature 98.3 [degF] Kassidy Gold JAMEEL [facility] Work Phone: 12-25-2016 11:02-0400 BP Diastolic 80 mm[Hg] Kassidy Gold JAMEEL [facility] Work Phone: 12-25-2016 11:02-0400 BP Systolic 126 mm[Hg] Kassidy Hilljosé J[facility]ENSEN [facility] Work Phone: 12-25-2016 11:02-0400 Height 170.18 cm Kassidy Hilljosé [employer] PER[employer]MANCE [employer]ORER [facility] Work Phone: 12-25-2016 11:02-0400 Pulse (Heart Rate) 98 /min Kassidy Hilljosé [facility]ENSEN [facility] Work Phone: 12-25-2016 11:02-0400 Respiratory Rate 14 /min Kassidy Gold LPN [facility] Work Phone: 12-25-2016 11:02-0400 Weight 113.4 kg Kassidy Gold LPN [facility] Work Phone: 05-19-2016 07:34-0500 Body Temperature 98.78 [degF] Kassidy Gold LPN [facility] Work Phone: 05-19-2016 07:34-0500 BSA (Body Surface Area) 2.27 m2 Kassidy Gold LPN [facility] Work Phone: 05-19-2016 07:34-0500 Height 170.18 cm Kassidy Gold LPN [facility] Work Phone: 05-19-2016 07:34-0500 Weight 118.64 kg Kassidy Gold LPN [facility] Work Phone: Procedures Date Procedure Procedure Detail Performing Clinician Start: 04-24-2016 End: 04-25-2016 Margarita James Work Phone: Start: 01-28-2016 End: 01-28-2016 Follow Up Appt 3 months Michael James Work Phone: Plan of Treatment Date Care Activity Detail Author Start: 12-25-2016 End: 12-25-2016 Appointment Appointment [facility] Work Phone: Start: 07-03-2016 End: 07-03-2016 Follow Up Appt Other Follow Up Appt Other [facility] Work Phone: Start: 05-19-2016 End: 05-19-2016 CSM CSM [facility] Work Phone: Start: 05-19-2016 End: 05-19-2016 Follow Up Appt 3 months Follow Up Appt 3 months [facility] Work Phone: Start: 04-24-2016 End: 04-24-2016 Follow Up Appt 1 month Follow Up Appt 1 month [facility] Work Phone: Start: 04-24-2016 End: 04-24-2016 Globulin *ALYSSA Immunoglobulin E (IgE) [facility] Work Phone: Start: 02-25-2016 End: 02-25-2016 Bacteria sputum culture *Sputum Culture [facility] Work Phone: Start: 02-25-2016 End: 02-25-2016 BWA BWA [facility] Work Phone: Start: 01-28-2016 End: 01-28-2016 Ct thorax w/o dye CT Chest without contrast [facility] Work Phone: Start: 01-28-2016 End: 01-28-2016 Follow Up Appt 3 months Follow Up Appt 3 months [facility] Work Phone: Start: 01-28-2016 End: 01-28-2016 Pulmonary Function Test - complete Pulmonary Function Test - complete [facility] Work Phone: Patient Education ASTHMA [facility] Work Phone: Progress note 05-15-2021 Note Date & Type Note Facility 05-15-2021 Note HNO ID: [id number] Author: Britney Murry MA Service: ? Author Type: Legal Practice Manager Type: Progress Notes Filed: 05/15/2021 8:57 AM Note Text: POPULATION HEALTH NAVIGATION OUTREACH Action/FYI Pt responded back to [employer] msg via [employer] Stated she has switched to another clinic with a new PCP. PCP updated in chart to NO PCP. Reply sent back to patient. Encounter closed. Contact made with patient or family member? YES Pt identified by name and : YES Outreach Outcome/Action Shustir message sent PCP field updated Reason for Outreach Attribution: Provider Off-boarding Payer: Payor: AETNA / Plan: AETNA CHOICE POS II / Product Type: POS / Care Gap Reviewed:: KYE Murry MA May 15, 2021 8:52 AM [facility] Progress note 05-14-2021 Note Date & Type Note Facility 05-14-2021 Note HNO ID: [id number] Author: Britney Murry MA Service: ? Author Type: Legal Practice Manager Type: Progress Notes Filed: 05/14/2021 11:34 AM Note Text: POPULATION HEALTH NAVIGATION OUTREACH Action/I PCP OFF BOARDING OUTREACH Attempt #1 LMOVM Attempt # 2 Sent Mychart Message. Encounter closed. Contact made with patient or family member? NO Pt identified by name and : NO Outreach Outcome/Action Unable to reach patient: Left message MyChart message sent Reason for Outreach Attribution: Provider Off-boarding Payer: Payor: AETNA / Plan: AETNA CHOICE POS II / Product Type: POS / Care Gap Reviewed:: Annual Wellness visit Breast Cancer screening Colorectal Cancer Screening Flu vaccine Reminder: Reminder note to check Health Maintenance for items below Health Maintenance items due: COVID-19 VACCINE(1) Never done SPIROMETRY Never done HEPATITIS C SCREENING Never done HIV SCREENING Never done DTAP,TDAP,TD(1 - Tdap) Never done MAMMOGRAM Never done DEPRESSION SCREENING due on 10/06/2017 ANNUAL PCP TEAM CHRONIC DISEASE VISIT due on 03/25/2018 PAP TESTING due on 11/10/2019 HPV TESTING due on 11/10/2019 INFLUENZA(1) due on 01/02/2021 DIABETES SCREEN due on 01/18/2021 COLORECTAL CANCER SCREENING Never done Britney Murry MA May 14, 2021 11:28 AM [facility] Clinical Note 05-13-2021 Note Date & Type Note Facility 05-13-2021 Note Patient Outreach (CAROLYNN TNAV) MCKENNA MORAN ([id number]) 1975 F Date Time Provider Department 05/13/21 BRITNEY MURRY During your visit today, we recorded the following information about you: Britney Murry MA 05/14/2021 11:34 AM Signed POPULATION HEALTH NAVIGATION OUTREACH Action/FYI PCP OFF BOARDING OUTREACH Attempt #1 LMOVM Attempt # 2 Sent Mychart Message. Encounter closed. Contact made with patient or family member? NO Pt identified by name and : NO Outreach Outcome/Action Unable to reach patient: Left message MyChart message sent Reason for Outreach Attribution: Provider Off-boarding Payer: Payor: AETNA / Plan: AETNA CHOICE POS II / Product Type: POS / Care Gap Reviewed:: Annual Wellness visit Breast Cancer screening Colorectal Cancer Screening Flu vaccine Reminder: Reminder note to check Health Maintenance for items below Health Maintenance items due: COVID-19 VACCINE(1) Never done SPIROMETRY Never done HEPATITIS C SCREENING Never done HIV SCREENING Never done DTAP,TDAP,TD(1 - Tdap) Never done MAMMOGRAM Never done DEPRESSION SCREENING due on 10/06/2017 ANNUAL PCP TEAM CHRONIC DISEASE VISIT due on 03/25/2018 PAP TESTING due on 11/10/2019 HPV TESTING due on 11/10/2019 INFLUENZA(1) due on 01/02/2021 DIABETES SCREEN due on 01/18/2021 COLORECTAL CANCER SCREENING Never done Britney Murry MA May 14, 2021 11:28 AM Britney Murry MA 05/15/2021 8:57 AM Signed POPULATION HEALTH NAVIGATION OUTREACH Action/FYI Pt responded back to [employer] msg via [employer] Stated she has switched to another clinic with a new PCP. PCP updated in chart to NO PCP. Reply sent back to patient. Encounter closed. Contact made with patient or family member? YES Pt identified by name and : YES Outreach Outcome/Action Shustir message sent PCP field updated Reason for Outreach Attribution: Provider Off-boarding Payer: Payor: AETNA / Plan: AETNA CHOICE POS II / Product Type: POS / Care Gap Reviewed:: NA Britney Murry MA May 15, 2021 8:52 AM Allergies As of Date: 05/13/2021 Noted Allergy Reaction IODINE (CONTRAST DYE) 03/06/2006 12 - Shortness of Breath LATEX 03/25/2017 2 - Rash shell fish [Other] 11/03/2005 7 - Swelling Comments: tongue Date Reviewed: 06/04/2019 Reviewed by: Magda Reese Ma - Fully Assessed Reason for Visit: Population Health Navigation Outreach [3910] Cmt: Offboarding - Dr Cervantes III Prescriptions as of 05/15/2021 - montelukast (SINGULAIR) 10 mg tablet take 1 tablet by mouth at bedtime - albuterol HFA (PROAIR HFA) 90 mcg/actuation inhaler Inhale 2 Puffs as instructed every 6 hours as needed. - mometasone-formoterol (DULERA) 200-5 mcg/actuation inhaler Inhale 2 Puffs as instructed twice daily. - tiotropium bromide (SPIRIVA RESPIMAT) 2.5 mcg/actuation mist Inhale 2 Inhalation as instructed once daily. - EPINEPHrine 0.3 mg/0.3 mL (1:1,000) auto-injector Inject 0.3 mL intramuscularly as directed. - albuterol 2.5 mg /3 mL (0.083 %) nebulizer solution Use 3 mL via nebulizer three times daily as needed. OVER 5-15 MINUTES. FOR WHEEZING AND SHORTNESS OF BREATH. - acetaminophen (TYLENOL) 325 mg tablet Take 2 tablets by mouth once daily. - fexofenadine (NIVAI) 180 mg tablet Take 1 tablet by mouth once daily. - Cranberry Extract 500 mg cap Take 1 capsule by mouth once daily. - Diphenhydramine-Acetaminophen (TYLENOL PM EXTRA STRENGTH) 25-500 mg Tab Take 2 tablets by mouth once daily. Problem List As Of Date 05/13/2021 Noted Resolved Unspecified constipation [K59.00] 04/10/2005 10/06/2016 Migraine with aura and without status migrainos* OBESITY NOS [E66.9] 12/17/2005 Other dyspnea and respiratory abnormality [R06.*03/03/2006 02/05/2016 Extrinsic asthma [J45.909] 02/16/2007 Allergic state [T78.40XA] 05/13/2007 Esophageal reflux [K21.9] 05/13/2007 10/06/2016 Acute pancreatitis [K85.90] 06/24/2007 10/06/2016 Calculus of gallbladder with acute cholecystiti*07/02/2007 10/06/2016 Toxic effect of fish and shellfish [T61.91XA, T*02/10/2008 10/06/2016 DVT (deep venous thrombosis) (HCC) [I82.409] 02/04/2012 10/06/2016 residential (current) use of anticoagulants [Z79.*02/10/2012 09/22/2012 Personal history of DVT (deep vein thrombosis) *09/22/2012 Post concussion syndrome [F07.81] 07/06/2014 10/06/2016 Contusion of peripheral nerve [T14.8XXA] 07/06/2014 10/06/2016 Periorbital pain [H57.10] 07/06/2014 10/06/2016 Encounter Status:Closed by BRITNEY MURRY on 05/14/21 [facility] Clinical Note 11-23-2020 Note Date & Type Note Facility 11-23-2020 Note Patient Outreach (IN [facility]) MCKENNA MORAN ([id number]) 1975 F Date Time Provider Department 11/23/20 JARRETT CERVANTES III During your visit today, we recorded the following information about you: Allergies As of Date: 11/23/2020 Noted Allergy Reaction IODINE (CONTRAST DYE) 03/06/2006 12 - Shortness of Breath LATEX 03/25/2017 2 - Rash shell fish [Other] 11/03/2005 7 - Swelling Comments: tongue Date Reviewed: 06/04/2019 Reviewed by: Magda Reese Ma - Fully Assessed Visit Diagnosis:Encounter for screening mammogram for breast cancer [Z12.31] Order(s):[facility] SCREENING [8387769] Order #: [id number] FUTURE Prescriptions as of 11/26/2020 - montelukast (SINGULAIR) 10 mg tablet take 1 tablet by mouth at bedtime - albuterol HFA (PROAIR HFA) 90 mcg/actuation inhaler Inhale 2 Puffs as instructed every 6 hours as needed. - mometasone-formoterol (DULERA) 200-5 mcg/actuation inhaler Inhale 2 Puffs as instructed twice daily. - tiotropium bromide (SPIRIVA RESPIMAT) 2.5 mcg/actuation mist Inhale 2 Inhalation as instructed once daily. - EPINEPHrine 0.3 mg/0.3 mL (1:1,000) auto-injector Inject 0.3 mL intramuscularly as directed. - albuterol 2.5 mg /3 mL (0.083 %) nebulizer solution Use 3 mL via nebulizer three times daily as needed. OVER 5-15 MINUTES. FOR WHEEZING AND SHORTNESS OF BREATH. - acetaminophen (TYLENOL) 325 mg tablet Take 2 tablets by mouth once daily. - fexofenadine (NIVIA) 180 mg tablet Take 1 tablet by mouth once daily. - Cranberry Extract 500 mg cap Take 1 capsule by mouth once daily. - Diphenhydramine-Acetaminophen (TYLENOL PM EXTRA STRENGTH) 25-500 mg Tab Take 2 tablets by mouth once daily. Problem List As Of Date 11/23/2020 Noted Resolved Unspecified constipation [K59.00] 04/10/2005 10/06/2016 Migraine with aura and without status migrainos* OBESITY NOS [E66.9] 12/17/2005 Other dyspnea and respiratory abnormality [R06.*03/03/2006 02/05/2016 Extrinsic asthma [J45.909] 02/16/2007 Allergic state [T78.40XA] 05/13/2007 Esophageal reflux [K21.9] 05/13/2007 10/06/2016 Acute pancreatitis [K85.90] 06/24/2007 10/06/2016 Calculus of gallbladder with acute cholecystiti*07/02/2007 10/06/2016 Toxic effect of fish and shellfish [T61.91XA, T*02/10/2008 10/06/2016 DVT (deep venous thrombosis) ([facility]) [I82.409] 02/04/2012 10/06/2016 residential (current) use of anticoagulants [Z79.*02/10/2012 09/22/2012 Personal history of DVT (deep vein thrombosis) *09/22/2012 Post concussion syndrome [F07.81] 07/06/2014 10/06/2016 Contusion of peripheral nerve [T14.8XXA] 07/06/2014 10/06/2016 Periorbital pain [H57.10] 07/06/2014 10/06/2016 Encounter Status:Closed by EPIC, PRODUSER on 11/26/20 [facility] Progress note 11-13-2020 Note Date & Type Note Facility 11-13-2020 Note HNO ID: [id number] Author: Alisha Camargo Service: ? Author Type: ? Type: Progress Notes Filed: 11/13/2020 3:03 PM Note Text: POPULATION HEALTH NAVIGATION OUTREACH Action/FYI Unable to reach patient, left a detailed VM and sent my-chart message. Contact made with patient or family member? no Pt identified by name and : no Outreach Outcome/Action Unable to reach patient, left a detailed VM and sent my-chart message. Reason for Outreach Care gap - annual visit Payer: Payor: AETNA / Plan: AETNA CHOICE POS II / Product Type: POS / Care Gap Reviewed:: [employer] NuPathe - pap Reminder: Reminder note to check Health Maintenance for items below Health Maintenance items due: COVID-19 VACCINE(1) Never done SPIROMETRY Never done HEPATITIS C SCREENING Never done HIV SCREENING Never done DTAP,TDAP,TD(1 - Tdap) Never done MAMMOGRAM Never done DEPRESSION SCREENING due on 10/06/2017 ANNUAL PCP TEAM CHRONIC DISEASE VISIT due on 03/25/2018 PAP TESTING due on 11/10/2019 HPV TESTING due on 11/10/2019 Advanced Directives Completed: Have you ever planned for future healthcare decisions with a power of insurance defense attorney, living will, or advance directives? Referrals: Message Sent to Practice: Navigation Signature: Alisha Camargo November 13, 2020 3:01 PM [facility] Clinical Note 11-13-2020 Note Date & Type Note Facility 11-13-2020 Note Patient Outreach (CAROLYNN TNAV) MCKENNA MORAN ([id number]) 1975 F Date Time Provider Department 11/13/20 ALISHA CAMARGO During your visit today, we recorded the following information about you: Alisha Camargo 11/13/2020 3:03 PM Signed POPULATION HEALTH NAVIGATION OUTREACH Action/FYI Unable to reach patient, left a detailed VM and sent my-chart message. Contact made with patient or family member? no Pt identified by name and : no Outreach Outcome/Action Unable to reach patient, left a detailed VM and sent my-chart message. Reason for Outreach Care gap - annual visit Payer: Payor: AETNA / Plan: AETNA CHOICE POS II / Product Type: POS / Care Gap Reviewed:: woman NuPathe - pap Reminder: Reminder note to check Health Maintenance for items below Health Maintenance items due: COVID-19 VACCINE(1) Never done SPIROMETRY Never done HEPATITIS C SCREENING Never done HIV SCREENING Never done DTAP,TDAP,TD(1 - Tdap) Never done MAMMOGRAM Never done DEPRESSION SCREENING due on 10/06/2017 ANNUAL PCP TEAM CHRONIC DISEASE VISIT due on 03/25/2018 PAP TESTING due on 11/10/2019 HPV TESTING due on 11/10/2019 Advanced Directives Completed: Have you ever planned for future healthcare decisions with a power of insurance defense attorney, living will, or advance directives? Referrals: Message Sent to Practice: Navigation Signature: Alisha Gegprifti November 13, 2020 3:01 PM Allergies As of Date: 11/13/2020 Noted Allergy Reaction IODINE (CONTRAST DYE) 03/06/2006 12 - Shortness of Breath LATEX 03/25/2017 2 - Rash shell fish [Other] 11/03/2005 7 - Swelling Comments: tongue Date Reviewed: 06/04/2019 Reviewed by: Magda Reese Ma - Fully Assessed Reason for Visit: Population Health Navigation Outreach [3910] Cmt: care gap - annual visit / [employer] NuPathe Prescriptions as of 11/13/2020 - montelukast (SINGULAIR) 10 mg tablet take 1 tablet by mouth at bedtime - albuterol HFA (PROAIR HFA) 90 mcg/actuation inhaler Inhale 2 Puffs as instructed every 6 hours as needed. - mometasone-formoterol (DULERA) 200-5 mcg/actuation inhaler Inhale 2 Puffs as instructed twice daily. - tiotropium bromide (SPIRIVA RESPIMAT) 2.5 mcg/actuation mist Inhale 2 Inhalation as instructed once daily. - EPINEPHrine 0.3 mg/0.3 mL (1:1,000) auto-injector Inject 0.3 mL intramuscularly as directed. - albuterol 2.5 mg /3 mL (0.083 %) nebulizer solution Use 3 mL via nebulizer three times daily as needed. OVER 5-15 MINUTES. FOR WHEEZING AND SHORTNESS OF BREATH. - acetaminophen (TYLENOL) 325 mg tablet Take 2 tablets by mouth once daily. - fexofenadine (NIVIA) 180 mg tablet Take 1 tablet by mouth once daily. - Cranberry Extract 500 mg cap Take 1 capsule by mouth once daily. - Diphenhydramine-Acetaminophen (TYLENOL PM EXTRA STRENGTH) 25-500 mg Tab Take 2 tablets by mouth once daily. Problem List As Of Date 11/13/2020 Noted Resolved Unspecified constipation [K59.00] 04/10/2005 10/06/2016 Migraine with aura and without status migrainos* OBESITY NOS [E66.9] 12/17/2005 Other dyspnea and respiratory abnormality [R06.*03/03/2006 02/05/2016 Extrinsic asthma [J45.909] 02/16/2007 Allergic state [T78.40XA] 05/13/2007 Esophageal reflux [K21.9] 05/13/2007 10/06/2016 Acute pancreatitis [K85.90] 06/24/2007 10/06/2016 Calculus of gallbladder with acute cholecystiti*07/02/2007 10/06/2016 Toxic effect of fish and shellfish [T61.91XA, T*02/10/2008 10/06/2016 DVT (deep venous thrombosis) ([facility]) [I82.409] 02/04/2012 10/06/2016 residential (current) use of anticoagulants [Z79.*02/10/2012 09/22/2012 Personal history of DVT (deep vein thrombosis) *09/22/2012 Post concussion syndrome [F07.81] 07/06/2014 10/06/2016 Contusion of peripheral nerve [T14.8XXA] 07/06/2014 10/06/2016 Periorbital pain [H57.10] 07/06/2014 10/06/2016 Encounter Status:Closed by ALISHA CAMARGO on 11/13/20 [facility] Summary Purpose Family History No Family History Records Found Advance Directives No Advanced Directives Records Found Additional Source Comments INFORMATION SOURCE (unrecogn ized section and content) FOR RECORDS PERTAINING TO PATIENTS WHO ARE OR HAVE BEEN ENROLLED IN A CHEMICAL DEPENDENCY/SUBSTANCEABUSE PROGRAM, SOME INFORMATION MAY BE OMITTED. This clinical summary was aggregated from multiple sources. Caution should be exercised in using it in the provision of clinical care. This summary normalizes information from multiple sources, and as a consequence, information in this document may materially change the coding, format and clinical context of patient data. In addition, data may be omitted in some cases. CLINICAL DECISIONS SHOULD BE BASED ON THE PRIMARY CLINICAL RECORDS. [facility] [employer] [facility]. provides no warranty or guarantee of the accuracy or completeness of information in this document.
== END | disposition home or self-care (01) ==
LOC: BIMLAB 10:44
PROVIDERS: PCP Internal Medicine; Referring Provider Internal Medicine; Visit Provider Internal Medicine
DX: I10 Essential (primary) hypertension (principal); R73.03 Prediabetes
CPT/HCPCS: 36415; 80048; 83036

== ENCOUNTER → 2023-12-04 | Outpatient (CLI) | payer OTHER, SELFPAY ==
[2023-12-04 16:17] LABS: Absolute Lymphocyte Count 1.85 X10^3/uL (0.83-4.51); Basophil# 0.03 X10^3/uL; Basophil% 0.3 % (0-1); Eosinophil# 0.07 X10^3/uL; Eosinophils% 0.8 % (0-5); Hematocrit 42.8 % (37-47); Hemoglobin 13.5 g/dL (12.0-15.0); Lymphocyte # 1.85 X10^3/ul (0.83-4.51); Lymphocyte % 21.4 % (19-41); Mean Corp Hgb Conc 31.5 g/dL (32-36); Mean Corpuscular Hgb 29.2 pg (27.0-32.0); Mean Corpuscular Volume 92.4 fL (81-99); Monocyte# 0.67 X10^3/uL; Monocyte% 7.8 % (0-10); NRBC Flagged by Analyzer 0 % (0-5); Neutrophil # 5.99 X10^3/uL (2.7-7.7); Neutrophil % 69.4 % (47-70); Platelet Count 303 K/mm3 (150-450); RBC Distribution Width CV 13.2 % (11.6-14.6); RBC Distribution Width SD 44.5 fl (35.1-43.9); Red Blood Count 4.63 M/mm3 (4.2-5.4); White Blood Count 8.6 K/mm3 (4.4-11.0)
[2023-12-04 16:37] LABS: ALB/GLOB Ratio 1.1 RATIO (0.9-2.4); AST(SGOT) 20 U/L (15-37); Alanine Aminotransfer ALT/SGPT 61 U/L (13-56); Albumin, Serum 3.8 g/dL (3.2-5.0); Alkaline Phosphatase 131 U/L (45-117); Anion Gap 5 (5-15); BUN 13 mg/dL (7-18); BUN/Creat Ratio 15.9 RATIO (10-20); Calcium,Total 10.2 mg/dL (8.5-10.1); Chloride 108 mmol/L (98-107); Creatinine, Serum 0.82 mg/dL (0.55-1.02); EST Glomerular Filtration Rate 80 mL/min (>60); Est Glom Filt Rate - Afr Amer 96 mL/min (>60); Globulin 3.6 g/dL (2.2-4.2); Glucose 104 mg/dL (74-106); Potassium 4.7 mmol/L (3.5-5.1); Protein, Total 7.4 g/dL (6.4-8.2); Sodium Level 141 mmol/L (136-145)
== END | disposition home or self-care (01) ==
LOC: BIMLAB 12:12
PROVIDERS: PCP Internal Medicine; Referring Provider Internal Medicine; Visit Provider Internal Medicine
DX: I10 Essential (primary) hypertension (principal)
CPT/HCPCS: 36415; 80053; 85025

== ENCOUNTER → 2024-01-12 | Outpatient (CLI) | payer OTHER, SELFPAY ==
--- NOTE | 2024-01-12 08:22 | RAD_ITS ---
STUDY: X-RAY CHEST REASON FOR EXAM: Female, 48 years old. Cough. TECHNIQUE: Frontal and lateral views of the chest. COMPARISON: October 23, 2020 FINDINGS: The lungs are clear and expanded. There is no demonstrated pleural abnormality. Normal size heart. Normal mediastinum and keesha. Normal visualized pulmonary arteries. Normal visualized aortic arch and descending thoracic aorta. Normal visualized thoracic spine. Normal visualized ribs, clavicles, and shoulders. No abnormality of the visualized soft tissue structures of the upper abdomen. RAD/Chest PA and Lateral IMPRESSION: No interval change. Normal x-ray examination of the chest. Electronically Signed: Ken Abbasi MD at 9:36 EDT ,
== END | disposition home or self-care (01) ==
PROVIDERS: PCP Internal Medicine; Referring Provider Nurse Practitioner Acute Care; Visit Provider Nurse Practitioner Acute Care
DX: J20.9 Acute bronchitis, unspecified (principal)
CPT/HCPCS: 71046; 87070; 87205

== ENCOUNTER → 2024-04-22 | Outpatient (CLI) | payer OTHER, SELFPAY ==
[2024-04-22 15:08] LABS: Absolute Lymphocyte Count 1.23 X10^3/uL (0.83-4.51); Basophil# 0.03 X10^3/uL; Basophil% 0.4 % (0-1); Eosinophil# 0.03 X10^3/uL; Eosinophils% 0.4 % (0-5); Hematocrit 40.9 % (37-47); Hemoglobin 12.7 g/dL (12.0-15.0); Lymphocyte # 1.23 X10^3/ul (0.83-4.51); Lymphocyte % 18.2 % (19-41); Mean Corp Hgb Conc 31.1 g/dL (32-36); Mean Corpuscular Hgb 27.6 pg (27.0-32.0); Mean Corpuscular Volume 88.9 fL (81-99); Mean Platelet Vol. 10.8 fl (6.2-12.0); Monocyte# 0.46 X10^3/uL; Monocyte% 6.8 % (0-10); NRBC Flagged by Analyzer 0 % (0-5); Neutrophil # 4.98 X10^3/uL (2.7-7.7); Neutrophil % 73.9 % (47-70); Platelet Count 292 K/mm3 (150-450); RBC Distribution Width SD 44.8 fl (35.1-43.9); White Blood Count 6.8 K/mm3 (4.4-11.0)
[2024-04-22 16:08] LABS: ALB/GLOB Ratio 1.1 RATIO (0.9-2.4); AST(SGOT) 21 U/L (15-37); Alanine Aminotransfer ALT/SGPT 44 U/L (13-56); Albumin, Serum 3.8 g/dL (3.2-5.0); Alkaline Phosphatase 128 U/L (45-117); Anion Gap 6 (5-15); BUN 10 mg/dL (7-18); BUN/Creat Ratio 11.5 RATIO (10-20); Calcium,Total 9.9 mg/dL (8.5-10.1); Chloride 109 mmol/L (98-107); Creatinine, Serum 0.87 mg/dL (0.55-1.02); EST Glomerular Filtration Rate 74 mL/min (>60); Est Glom Filt Rate - Afr Amer 90 mL/min (>60); Globulin 3.4 g/dL (2.2-4.2); Glucose 100 mg/dL (74-106); Protein, Total 7.2 g/dL (6.4-8.2); Sodium Level 141 mmol/L (136-145)
== END | disposition home or self-care (01) ==
LOC: BIMLAB 11:43
PROVIDERS: PCP Internal Medicine; Referring Provider Internal Medicine; Visit Provider Internal Medicine
DX: E78.5 Hyperlipidemia, unspecified (principal)
CPT/HCPCS: 36415; 80053; 85025

== ENCOUNTER → 2024-04-28 | Outpatient (CLI) | payer OTHER, SELFPAY | END | disposition home or self-care (01) | LOC: PSN 09:17 | PROVIDERS: PCP Internal Medicine; Referring Provider Nurse Practitioner Acute Care; Visit Provider Nurse Practitioner Acute Care | DX: J45.909 Unspecified asthma, uncomplicated (principal) | CPT/HCPCS: 94060; 94726; 94729 ==

== ENCOUNTER → 2024-10-17 | Outpatient (CLI) | payer OTHER, SELFPAY ==
--- NOTE | 2024-10-17 08:00 | BI_ITS ---
EXAM: SCRN MAMM (CAD)W/JAZMÍN BILAT DATE: 10/17/2024 CLINICAL HISTORY: F, Age 49 y/o , SCREENING MAMMOGRAM BREAST CANCER RISK ASSESSMENT: Has not been calculated. TECHNIQUE: Bilateral screening digital breast tomosynthesis with 2D and 3D images. Computer aided detection. COMPARISON: Prior exam(s) dated 07/24/2021. FINDINGS: TISSUE DENSITY: The breast tissue is almost entirely fatty. Bilateral Breast Mammographic Findings: No suspicious masses, suspicious clustered microcalcifications, architectural distortion or secondary sign of malignancy is identified in either breast. Benign round microcalcifications are seen in both breasts. Suture material is seen in the superior outer, far posterior aspect of the right breast. A benign macrocalcification is seen in the right breast. BI/SCRN MAMM (CAD)W/JAZMÍN BILAT IMPRESSION: OVERALL FINAL ASSESSMENT: BIRADS 2 BENIGN FINDING RECOMMENDATION: Routine annual follow-up in 1 Year A letter with findings and recommendations will be mailed to the patient. Reading Location: [id number]
== END | disposition home or self-care (01) ==
LOC: OPBI 07:50
PROVIDERS: PCP Internal Medicine; Referring Provider Registered Nurse; Visit Provider Registered Nurse
DX: Z12.31 Encounter for screening mammogram for malignant neoplasm of breast (principal)
CPT/HCPCS: 77063; 77067

== ENCOUNTER 2024-11-01 08:22 | Day surgery (SDC) | payer OTHER, SELFPAY ==
[2024-11-01] VITALS (7 sets, daily range): BP systolic 95–132; BP diastolic 57–96; PULSE 80–99; RESP 16; TEMP 36.2–36.7; O2SAT 92–99; BMI 45.9
[2024-11-01] MEDS: Lactated Ringers 1,000 ML 15 ML IV (08:46)
--- NOTE | 2024-11-01 09:05 | PCM.PRE.AN2 ---
ASA Classification* ASA Classification ASA Classification: 3 Assessment & Plan Anesthesia* Anesthesia Assessment Anesthesia Assessment: Discussed sedation and/or anesthesia options, risks, benefits, and alternatives with patient/parents/legal guardian/POA. Questions invited. The patient/parents/legal guardian/POA seems to understand and agrees to proceed with anesthesia plan. Reviewed the physical assessment, medical history, allergy history and patient home medications list prior to surgery/procedure/anesthetic and documented any changes. Performed airway and anesthesia risk assessments. Procedural Plan Add'l anesthesia plan details: we discussed that with MAC anesthesia there is always a possibility for intraop awareness, patient reports she understands and I answered all of her questions. Anesthesia Type Anesthesia Type: MAC History Source History Obtained from:: Patient and Chart Anesthesia Focused Assessment* Temperature: 98.1 F Pulse Rate: 99 Blood Pressure: 132/96 Respiratory Rate: 16 Pulse Ox: 99 Oxygen Delivery Method: Room Air Airway Assessment Mouth opens: >3 cm Mallampati Score: II Teeth Condition: Intact Neck Range of motion (ROM): Full ROM Labs Anesthesia Preop lab: CBC WBC 6.8 K/mm3 (4.4-11.0) 04/22/24 11:43 04/22/24 RBC 4.60 M/mm3 (4.2-5.4) 04/22/24 11:43 04/22/24 Hgb 12.7 g/dL (12.0-15.0) 04/22/24 11:43 04/22/24 Hct 40.9 % (37-47) 04/22/24 11:43 04/22/24 Plt Count 292 K/mm3 (150-450) 04/22/24 11:43 04/22/24 CHEMISTRY Potassium 4.0 mmol/L (3.5-5.1) 04/22/24 11:43 04/22/24 Sodium 141 mmol/L (136-145) 04/22/24 11:43 04/22/24 BUN 10 mg/dL (7-18) 04/22/24 11:43 04/22/24 Creatinine 0.87 mg/dL (0.55-1.02) 04/22/24 11:43 04/22/24 Glucose 100 mg/dL (74-106) 04/22/24 11:43 04/22/24 TSH 1.42 uIU/mL (0.358-3.74) 05/08/17 16:26 05/08/17 COAG PT 13.4 SECONDS (11.7-14.9) 08/11/17 14:48 08/11/17 Pre-Assessment Diagnosis/Proposed Procedure Planned Operative Procedure(s): CSCOPE Anesthesia History 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 When Was Last Pacemaker Check QUESTION #4 FULL TEXT: You/Your Family Experience fever (hyperthermia) with Anesthesia Last Oral Intake Last Oral intake: Last Oral Intake NPO since 23:00 11/01/24 08:47 Meds taken in AM with sips of No 11/01/24 08:47 water? Meds patient instructed to take am of surgery PONV PONV - aoc director combat operations officer: PONV - aoc director combat operations officer Female Yes 10/27/24 14:31 HX of Motion Sickness Yes 10/27/24 14:31 HX of N/V After Surgery Yes 10/27/24 14:31 Non-Smoker Yes 10/27/24 14:31 Duration of Surgery greater No 10/27/24 14:31 than 60 minutes Number of Risk Factors 4 10/27/24 14:31 PONV Score Severe Risk 10/27/24 14:31 Height & Weight Height & Weight: Anesthesia: Height & Weight Height 5 ft 7 in 11/01/24 08:47 Weight: 133 kg 11/01/24 08:47 Body Mass Index (BMI) 45.9 11/01/24 08:47 Respiratory Assessment Respiratory Assessment - aoc director combat operations officer: Respiratory Tract Infection Hx - aoc director combat operations officer Hx Respiratory Tract Infection No 10/27/24 14:31 STOP Sleep Apnea STOP Sleep Apnea - aoc director combat operations officer: STOP Sleep Apnea - aoc director combat operations officer Hx Hypertension Yes: CONTROLLED WITH MED 10/27/24 14:31 Hx Sleep Apnea No 10/27/24 14:31 CPAP BIPAP Do you snore loudly (louder No 10/27/24 14:31 than talking or can be heard Do you often feel tired/ No 10/27/24 14:31 fatigued/ sleepy during daytime? Has anyone observed you stop No 10/27/24 14:31 breathing during sleep? STOP Results Negative 10/27/24 14:31 QUESTION #5 FULL TEXT : Do you snore loudly (louder than talking or can be heard through closed doors)? Tobacco Use History Tobacco Use History - aoc director combat operations officer: Tobacco Use History - aoc director combat operations officer Tobacco Use Smoking Status Never smoker 10/27/24 14:31 Hx Tobacco Use No 10/27/24 14:31 Years Smoking Packs Smoked per Day Smoking Cessation Date was within the last 15 years Hx Smoking Cessation Date Hx Smoking Cessation Counseling Hematologic Medial History Hematologic Hx - aoc director combat operations officer: Hematologic Medical Hx - hosiery mater Hx of Blood Transfusion No 10/27/24 14:31 Hx of Transfusion in last 3 No 10/27/24 14:31 Months Date of Last Transfusion (if within last 3 months) Ever experience any problems No 10/27/24 14:31 with transfusion(s)? Specify any problems Hx of Preganancy in last 3 N/A 10/27/24 14:31 Months Nurse Filling Out Transfusion NBUCHER 10/27/24 14:31 & Questions: Date: 10/27/24 10/27/24 14:31 Time: 14:33 10/27/24 14:31 Patient unable to answer at this time (ie. confused, unrespo /Reproduction History /Reproductive History - aoc director combat operations officer: /Reproductive Hx- aoc director combat operations officer Hx Now No 10/27/24 14:31 Gestational Age (in weeks): EDC: Hx Hx Para Hx Section SAB No 10/27/24 14:31 Active Medications Active Medications: Current Medications Generic Name Dose Route Start Last Admin Trade Name Freq PRN Reason Stop Dose Admin Lactated Ringer's 1,000 mls @ 15 mls/hr 11/01/24 08:30 11/01/24 08:46 IV 15 mls/hr .Q48H SUZANNE Administration PFSH Medical History (Updated 10/27/24 @ 14:38 by Laurie Beasley) PONV (postoperative nausea and vomiting) Anxiety Depression Arthritis High cholesterol Difficulty swallowing Chronic cough Shortness of breath on exertion Leg cramps Non-smoker History of echocardiogram Post-menopausal Health care maintenance Anxiety and depression Hyperlipidemia Varicose vein of leg Acute maxillary sinusitis, unspecified Nocturia Urinary frequency Borderline type 2 diabetes mellitus Hypertension Bilateral shoulder pain Morbid obesity Asthma COVID COVID-19 Knee pain Shoulder pain Back pain SOB (shortness of breath) Migraines Hay fever Home Medications ?Medication ?Instructions ?Recorded ?Last Taken ?Type spacer #1 ea 07/23/22 Unknown Rx epinephrine 0.3 mg/0.3 mL 0.3 mg (0.3 mL) subcut ONCE PRN 02/04/23 Unknown Rx injection, auto-injector anaphylaxis #2 ea levalbuterol tartrate 45 2 inh inhalation Q4H PRN shortness 02/04/23 Unknown Rx mcg/actuation aerosol inhaler of breath or wheezing #15 grams (Xopenex HFA) levalbuterol HCl 1.25 mg/3 mL 1.25 mg inhalation Q2H PRN 12/04/23 Unknown History solution for nebulization (Xopenex) shortness of breath or wheezing mometasone-formoterol HFA 200 2 puff inhalation BID #13 grams 07/20/24 11/01/24 Rx mcg-5 mcg/actuation aerosol inhaler (Dulera) sertraline 100 mg tablet (Zoloft) 100 mg PO QDAY #90 tabs 08/30/24 Unknown Rx montelukast 10 mg tablet 10 mg PO DAILY #90 tabs 09/15/24 Unknown Rx losartan 100 mg tablet 100 mg PO DAILY #90 tabs 10/25/24 Unknown Rx tezepelumab-ekko 210 mg/1.91 mL 210 mg (1.91 mL) subcut Q4W #1.91 10/25/24 Unknown Rx (110 mg/mL) subcutaneous pen mL injector (Tezspire) d-mannose 500 mg capsule (AZO 1,000 mg PO DAILY 10/27/24 Unknown History D-Mannose) diindolylmethane 75 mg-turmeric 1 cap PO DAILY 10/27/24 Unknown History 125 mg-black pepper 1.25 mg capsule Allergy/AdvReac Type Severity Reaction Status Date / Time iodine Allergy Anaphylaxis Verified 10/27/24 14:25 shellfish derived Allergy Unknown Verified 10/27/24 14:25 hydrocodone (From Vicodin) AdvReac Severe HALLUCINATI Verified 10/27/24 14:25 ONS Family History Mother Hypertension Diabetes Father Hypertension Diabetes Cancer Malignant hyperthermia due to anesthesia, Onset Age: 72 Heart disease passed due to [place] Surgical History H/O shoulder surgery uterine ablation essure Hx of LASIK bronchial thermoplasty History of cholecystectomy History of tonsillectomy H/O foot surgery Social History current occupational status: employed current occupation: [employer] Smoking Status: Never smoker second hand exposure: Yes alcohol intake: never substance use type: does not use caffeine: Yes what type of physical activity do you participate in: walking frequency: 3-4 times per week seatbelt use: always do you feel safe at home: Yes additional social history: Seperated Patient works from home Review of Systems (Anesthesia) ROS Narrative System reviewed and no additional complaints, except as documented. Physical Exam Const alert and oriented x3 Nutritional Appearance: obese Neck full ROM Resp normal respiratory effort, normal air movement and clear to auscultation bilaterally Cardio regular rate and regular rhythm Back/Spine normal ROM Extremity full ROM Neuro oriented x3 and moves all extremities
--- NOTE | 2024-11-01 09:26 | H&P.OPEN ---
HPI - General HPI Narrative MCKENNA MORAN, is a 49 F who presents for screening colonoscopy. Patient has never had a colonoscopy in the past. She denies abdominal pain or blood in the stool. No family history of colon cancer. [facility] Medical History (Updated 11/01/24 @ 09:[address] Jeremy Juan MD) PONV (postoperative nausea and vomiting) Anxiety Depression Arthritis High cholesterol Difficulty swallowing Chronic cough Shortness of breath on exertion Leg cramps Non-smoker History of echocardiogram Post-menopausal Health care maintenance Anxiety and depression Hyperlipidemia Varicose vein of leg Acute maxillary sinusitis, unspecified Nocturia Urinary frequency Borderline type 2 diabetes mellitus Hypertension Bilateral shoulder pain Morbid obesity Asthma COVID COVID-19 Knee pain Shoulder pain Back pain SOB (shortness of breath) Migraines Hay fever Home Medications ?Medication ?Instructions ?Recorded ?Last Taken ?Type spacer #1 ea 07/23/22 Unknown Rx epinephrine 0.3 mg/0.3 mL 0.3 mg (0.3 mL) subcut ONCE PRN 02/04/23 Unknown Rx injection, auto-injector anaphylaxis #2 ea levalbuterol tartrate 45 2 inh inhalation Q4H PRN shortness 02/04/23 Unknown Rx mcg/actuation aerosol inhaler of breath or wheezing #15 grams (Xopenex HFA) levalbuterol HCl 1.25 mg/3 mL 1.25 mg inhalation Q2H PRN 12/04/23 Unknown History solution for nebulization (Xopenex) shortness of breath or wheezing mometasone-formoterol HFA 200 2 puff inhalation BID #13 grams 07/20/24 11/01/24 Rx mcg-5 mcg/actuation aerosol inhaler (Dulera) sertraline 100 mg tablet (Zoloft) 100 mg PO QDAY #90 tabs 08/30/24 Unknown Rx montelukast 10 mg tablet 10 mg PO DAILY #90 tabs 09/15/24 Unknown Rx losartan 100 mg tablet 100 mg PO DAILY #90 tabs 10/25/24 Unknown Rx tezepelumab-ekko 210 mg/1.91 mL 210 mg (1.91 mL) subcut Q4W #1.91 10/25/24 Unknown Rx (110 mg/mL) subcutaneous pen mL injector (Tezspire) d-mannose 500 mg capsule (AZO 1,000 mg PO DAILY 10/27/24 Unknown History D-Mannose) diindolylmethane 75 mg-turmeric 1 cap PO DAILY 10/27/24 Unknown History 125 mg-black pepper 1.25 mg capsule Allergy/AdvReac Type Severity Reaction Status Date / Time iodine Allergy Anaphylaxis Verified 10/27/24 14:25 shellfish derived Allergy Unknown Verified 10/27/24 14:25 hydrocodone (From Vicodin) AdvReac Severe HALLUCINATI Verified 10/27/24 14:25 ONS Family History Mother Hypertension Diabetes Father Hypertension Diabetes Cancer Malignant hyperthermia due to anesthesia, Onset Age: 72 Heart disease passed due to [place] Surgical History H/O shoulder surgery uterine ablation essure Hx of LASIK bronchial thermoplasty History of cholecystectomy History of tonsillectomy H/O foot surgery Social History current occupational status: employed current occupation: [employer] Smoking Status: Never smoker second hand exposure: Yes alcohol intake: never substance use type: does not use caffeine: Yes what type of physical activity do you participate in: walking frequency: 3-4 times per week seatbelt use: always do you feel safe at home: Yes additional social history: Seperated Patient works from home Past Medical/Surgical History Planned Operation Planned Operative Procedure(s): CSCOPE Previous Hospitalizations/Surgeries HX of Surgeries: tonsillectomy multiple foot surgery bronchial thermoplasty cholecystectomy Cardiovascular Hx of Irregular Heartbeat and/or Afib: No Hx Heart Attack: No Hx Congestive Heart Failure: No Hx Hypertension: No Hx Internal Defibrillator: No Hx Pacemaker: No Respiratory Hx Chronic Obstructive Pulmonary Disease (COPD): No Hx Asthma: Yes Hx Emphysema: No Hx Sleep Apnea: No Do You Snore Loudly (louder than talking or can be heard): No Do You Often Feel Tired/ Fatigued/ Sleepy Dring Daytime?: No Has Anyone Observed You Stop Breathing During Sleep?: No Result (for STOP score): Negative Smoking Status: Never smoker Gastrointestinal Hx Ulcer: No Special diet followed at home: No Neurological Hx Seizures: No Hx Multiple Sclerosis: No Hx Parkinson's Disease: No Hx Head/Neck Injury: No Hx Headaches: Yes Hx Back Injury/Pain: No Reproduction : No Genitourinary Hx Renal Disease: No Endocrine Hx Diabetes: No Psycho/Social Hx Anxiety: No Hx Depression: No Miscellaneous Hx Cancer: No Recent Exposure to Contagious Disease: No Allergies iodine Allergy (Verified 10/27/24 14:25) Anaphylaxis shellfish derived Allergy (Verified 10/27/24 14:25) Unknown hydrocodone (From Vicodin) Adverse Reaction (Severe, Verified 10/27/24 14:25) HALLUCINATIONS Discharge Is Pt Admitted From a Skilled Nursing, or a Fdc: No After D/C, Where Do you Plan to Go: Return Home Vital Signs Vital Signs Vital Signs: 11/01/24 08:47 11/01/24 08:47 11/01/24 09:07 Temperature 98.1 F 98.1 F Temperature Source Temporal Pulse Rate 99 99 Respiratory Rate 16 16 Respiratory Pattern Normal Blood Pressure 132/96 H 132/96 H Blood Pressure Mean 108 Blood Pressure Source Monitor Blood Pressure Position Sitting Blood Pressure Location Left Arm Pulse Ox 99 99 Oxygen Delivery Method Room Air Room Air Weight Weight: 293 lb 3.437 oz Body Mass Index (BMI) 45.9 Physical Exam Const alert and oriented x3 HEENT normocephalic Eyes PERRL Resp normal respiratory effort and normal air movement Cardio regular rate and regular rhythm GI soft to palpation, non-tender and non-distended Extremity normal to inspection Assessment & Plan Assessment/Plan (1) Screen for colon cancer: PLAN: Plan I explained endoscopy in detail to the patient. I explained the risks including but not limited to stroke or heart attack with anesthesia, perforation of the GI tract, bleeding, infection. I explained that any of these could necessitate further emergency surgery. The patient understands and all questions were answered sufficiently. The patient wishes to proceed with procedure. Jeremy Juan MD Pager: [facility] [address] [place] [address], [address] [place] [address] Office: Surgery Risks - Colonoscopy Risks Include but are not Limited To: Risks include but are not limited to: Bleeding, perforation requiring further surgery, inability to complete colonoscopy requiring barium enema.
--- NOTE | 2024-11-01 09:30 | COLBX_PTH ---
PATIENT: MCKENNA MORAN LOC: EN U#:[id number] AGE/SX: 49/F ROOM: RE11/01/[address]: Dr. Jeremy Juan MD : 1975 BED: DIS: 11/01/2024 SPEC #: [id number] RECD: 11/01/24 12:10 STATUS: HILARY RACHAEL #: [id number] DONIS: 11/01/24 09:[address]: Jeremy Juan DEPT: SURGICAL PATHOLOGY RECD BY: Gomez Rockwell ENTERED: 11/01/24 14:26 SP TYPE: COLON BX OTHR DR: Dr. Pa Polo MD Tissues: A - Sigmoid colon biopsy Procedures: Surgery Specimen Level IV HEADER OPERATION: Colonoscopy with polypectomy PRE-OP DIAGNOSIS: Screen for colon cancer TISSUE SUBMITTED: A- Sigmoid polyp MICROSCOPIC DIAGNOSIS A. Sigmoid colon, polyp, biopsy: - Inflammatory polyp. MICROSCOPIC DESCRIPTION Slides are reviewed. GROSS DESCRIPTION A. Received in fixative is one container labeled with the patient's name and designated Sigmoid polyp. The specimen consists of one irregular fragment of light roth soft tissue that measures 0.3 cm. The specimen is totally submitted in one cassette. ROLAND/ 11/01/2024 CPT:29438
--- NOTE | 2024-11-01 10:00 | OP.COLON_ITS ---
Patient Name: Cony Ann Procedure Date: 11/01/2024 9:33 AM Date of : 1975 Age: 49 Procedure: Colonoscopy Indications: Screening for colorectal malignant neoplasm Providers: Jeremy Juan MD Referring MD: Pa Polo MD Medicines: Propofol per Anesthesia Patient Profile: This is a 49 year old female. Refer to note in patient chart for documentation of history and physical. Last Colonoscopy: none. The patient's first colonoscopy is today. Complications: No immediate complications. Estimated blood loss: Minimal. Procedure: Pre-Anesthesia Assessment: - Prior to the procedure, a History and Physical was performed, and patient medications and allergies were reviewed. The patient's tolerance of previous anesthesia was also reviewed. The risks and benefits of the procedure and the sedation options and risks were discussed with the patient. All questions were answered, and informed consent was obtained. Prior Anticoagulants: The patient has taken no anticoagulant or antiplatelet agents. ASA Grade Assessment: II - A patient with mild systemic disease. After reviewing the risks and benefits, the patient was deemed in satisfactory condition to undergo the procedure. After I obtained informed consent, the scope was passed under direct vision. Throughout the procedure, the patient's blood pressure, pulse, and oxygen saturations were monitored continuously. The pediatric colonoscope was introduced through the anus and advanced to the cecum, identified by appendiceal orifice and ileocecal valve. The colonoscopy was performed without difficulty. The patient tolerated the procedure well. The quality of the bowel preparation was good. The ileocecal valve, appendiceal orifice, and rectum were photographed. Scope In: 9:43:41 AM Scope Withdrawal Time 0 hours 7 minutes 41 seconds Scope Out: 9:57:25 AM Total Procedure Duration Time 0 hours 13 minutes 44 seconds Findings: A small polyp was found in the sigmoid colon. The polyp was removed with a hot snare. Resection and retrieval were complete. The exam was otherwise without abnormality on direct and retroflexion views. Impression: - One small polyp in the sigmoid colon, removed with a hot snare. Resected and retrieved. - The examination was otherwise normal on direct and retroflexion views. Recommendation: - Discharge patient to home. - Resume previous diet. - Continue present medications. - Await pathology results. - Repeat colonoscopy in 5 years for surveillance. Procedure Code(s): --- Professional --- 98267, Colonoscopy, flexible; with removal of tumor(s), polyp(s), or other lesion(s) by snare technique Diagnosis Code(s): --- Professional --- Z12.11, Encounter for screening for malignant neoplasm of colon D12.5, Benign neoplasm of sigmoid colon CPT copyright 2021 [employer]. All rights reserved. The codes documented in this report are preliminary and upon sack sewer machine review may be revised to meet current compliance requirements. Jeremy Juan MD 11/01/2024 10:00:29 AM This report has been signed electronically. Number of Addenda: 0 Note Initiated On: 11/01/2024 9:33 AM
--- NOTE | 2024-11-01 10:01 | OP.CCLET_ITS ---
11/01/2024 Pa Polo MD [address] [place] [address] [place] [address] Re : Colonoscopy procedure for Cony Ann Dear Dr. Polo This procedure was performed on Friday, November 01, 2024. My impressions and recommendations are as follows: Impressions : - One small polyp in the sigmoid colon, removed with a hot snare. Resected and retrieved. - The examination was otherwise normal on direct and retroflexion views. Recommendations : - Discharge patient to home. - Resume previous diet. - Continue present medications. - Await pathology results. - Repeat colonoscopy in 5 years for surveillance. My findings are described in the full procedure note, which is enclosed. If I can be of further assistance, please feel free to contact me at Doctor phone number(s): , Work: . Sincerely, Jeremy Juan MD 11/01/2024 10:00:29 AM This report has been signed electronically.
--- NOTE | 2024-11-01 10:15 | PCM.POST.ANE ---
Anesthesia: Postop Eval I Current Vital Signs Temperature: 97.4 F Pulse Rate: 84 Blood Pressure: 96/57 Respiratory Rate: 16 Pulse Ox: 96 Oxygen Delivery Method: Room Air Assessment Airway patent: Yes Spontaneous unlabored respirations: Yes Mental status: Awake and Calm nausea: No Vomiting: No Anesthesia Complication: No Fluid Hydration Crystalloid volume administer (ml): 400 Total IV fluid infused: 400 Progress Note Anesthesia document: Postop Eval 1 completed: Yes
--- NOTE | 2024-11-01 11:24 | PCM.POSTANE2 ---
Anesthesia Postop Eval I Sum Postop Eval Completion status Anesthesia document: Postop Eval 1 completed: Yes Anesthesia Postop Eval I Summary Anesthesia Postop Eval I Summary: Anesthesia Postop Eval I: Assessment Summary Airway patent Yes 11/01/24 10:15 [email or web address] Spontaneous unlabored Yes 11/01/24 10:15 [email or web address] respirations Mental status Awake,Calm 11/01/24 10:15 [email or web address] nausea No 11/01/24 10:15 [email or web address] Vomiting No 11/01/24 10:15 [email or web address] Anesthesia Postop Eval I: Fluid Summary Crystalloid volume administer 400 11/01/24 10:15 [email or web address] (ml) Colloids volume administered ( ml) Blood Product volume administered (ml) Total IV fluid infused 400 11/01/24 10:15 [email or web address] Anesthesia Postop Eval I: Summary Notes Anesthesia Complication No 11/01/24 10:15 [email or web address] Anesthesia Complication Comment: Post-operative progress note Anesthesia: Postop Eval II Evaluation Mental status: Awake and Calm Pain Level: 1 nausea: No Vomiting: No Complications Anesthesia Complication: No
== END 2024-11-01 10:45 | disposition home or self-care (01) ==
LOC: EN 08:23 → AC 08:25
PROVIDERS: PCP Internal Medicine; Referring Provider Internal Medicine; Visit Provider Surgery
PROC: 0DJD8ZZ Inspection of Lower Intestinal Tract, Via Natural or Artificial Opening Endoscopic (ICD-10-PCS; CPT 45378; principal; 2024-11-01 09:25)
DX: Z12.11 Encounter for screening for malignant neoplasm of colon (principal); E66.01 Morbid (severe) obesity due to excess calories; Z68.42 Body mass index [BMI] 45.0-49.9, adult; K63.5 Polyp of colon; I10 Essential (primary) hypertension; F41.9 Anxiety disorder, unspecified; F32.A Depression, unspecified; J45.909 Unspecified asthma, uncomplicated; Z79.51 Long term (current) use of inhaled steroids; Z79.899 Other long term (current) drug therapy
CPT/HCPCS: 45385; 88305; J2405